=== PATIENT | male | born 1955 | race Caucasian/White ===

== ENCOUNTER 2020-12-28 10:57 | Emergency (ER) | payer MEDICARE, SELFPAY ==
[2020-12-28 11:49] VITALS: BP 152/82; PULSE 84; RESP 18; TEMP 36.4; O2SAT 97; BMI 28.7
[2020-12-28 12:38] LABS: Glucose Urine UA NEG (NEG); Leukocyte Esterase Urine NEG (NEG); Nitrite Urine NEG (NEG); Urine Blood NEG (NEG); Urine Ketones NEG (NEG); Urine Protein NEG (NEG-TRACE)
[2020-12-28 12:41] LABS: Appearance Urine CLEAR; Color Urine YELLOW
--- NOTE | 2020-12-28 14:30 | ED_ITS ---
HPI - Male Genitourinary General Chief complaint: Urogenital-Male Stated complaint: unable to urinate Time Seen by Provider: 12/28/20 14:24 Source: patient Mode of arrival: ambulatory Limitations: no limitations History of Present Illness HPI Narrative: 65 yo male with past medical history of BPH here with urinary r etention since 2am. No fevers, chills, vomiting, diarrhea, abdominal pain. Takes flomax daily. Related Data Previous Rx's Medication Instructions Recorded tamsulosin 0.4 mg capsule 0.4 mg PO DAILY 90 Days #90 cap 10/03/20 Allergies Allergy/AdvReac Type Severity Reaction Status Date / Time No Known Allergies Allergy Verified 10/02/20 09:33 [No Known Allergies*] Review of Systems Review of Systems: Yes all other systems are reviewed and are negative Constitutional: Constitutional: Reports no additional constitutional complaints, Denies body ache(s), Denies chills, Denies fever(s), Denies headache(s) and Denies weakness Eyes: Eyes: Reports no additional eye complaints and Denies change in vision ENT: Reports system reviewed and no additional complaints, except as documented, Denies dizziness, Denies headache(s), Denies nasal congestion, Denies nasal discharge and Denies neck pain Cardiovascular: Cardiovascular: Reports no additional cardiovascular complaints, Denies chest pain, Denies leg edema and Denies dyspnea Respiratory: Respiratory: Reports no additional respiratory complaints, Denies cough and Denies dyspnea Gastrointestinal: Gastrointestinal: Reports no additional gastrointestinal complaints, Denies abdominal pain, Denies diarrhea, Denies nausea and Denies vomiting Genitourinary: Genitourinary: Reports difficulty urinating, Denies dysuria, Denies flank pain, Denies penile discharge, Denies testicular pain, Denies urinary frequency, Denies urinary hesitancy, Denies urinary incontinence and Denies urinary urgency Musculoskeletal: Musculoskeletal: Reports no additional musculoskeletal compl aints, Denies back pain, Denies arthralgias, Denies joint swelling, Denies neck pain, Denies numbness and Denies tingling Integumentary/Breasts: Skin/Breast: Reports system reviewed and no additional complaints, except as docu and Denies rash Neurologic: Reports system reviewed and no additional complaints, except as documented, Denies Abnormal speech present, Denies dizziness, Denies headache(s), Denies numbness, Denies tingling and Denies weakness PMF Past Medical History Attestation statement: The following information was validated with the patient. Source: old records reviewed and nursing notes reviewed Medical History No known health problems Surgical History History of appendectomy History of prostate biopsy Family History Family History Father Cancer of prostate Mother No problems noted. Son No problems noted. Brother No problems noted. Brother No problems noted. Brother No problems noted. Brother No problems noted. Sister No problems noted. Sister No problems noted. Sister No problems noted. Social History Social History Advance Directives: Yes Advance Directives Information Provided: No Advance Directives on File: No Physical Exam Vital Signs: Vital Signs: Last Vital Signs Temp 98.7 F 12/28/20 16:17 Pulse 89 12/28/20 16:17 Resp 18 12/28/20 16:17 BP 127/76 12/28/20 16:17 Pulse Ox 94 12/28/20 16:17 Body Mass Index 28.7 Const: General: cooperative, healthy appearing, comfortable and no acute distress Orientation/consciousness: patient oriented x3 Limitations: no limitations HENMT: Head: Yes normal to inspection Ears: hearing grossly normal bila terally General nose exam: Normal external nose present Face and sinus: Yes normal facial exam Mouth: Normal oral and palatal mucosa present Throat: Yes posterior oropharynx normal Eyes: General: appearance normal, both eyes and all related structures Pupils: Equal, round and reactive pupils present Neck: Neck: Yes normal visual inspection Chest: Chest palpation & inspection: normal inspection of the chest Resp: Effort & Inspection: normal respiratory effort Auscultation: clear to auscultation bilaterally Cardio: Rate: regular rate Rhythm: regular rhythm Peripheral pulses: Peripheral pulses 2+ throughout GI: Inspection: Yes normal to inspection Palpation (GI): Soft to palpation and Tenderness to palpation present (GI) (mild suprapubic) Auscultation: normal bowel sounds Back/Spine/Pelvis: Thoracic/Lumbar Spine: thoracic and lumbar spine normal to inspection Skin: General skin exam: no rashes or lesions noted Neuro: General: patient oriented x3, no focal motor deficits and normal sensation to monofilament Cranial nerves: Yes Equal, round and reactive pupils present Cognition (Neuro): normal cognition Speech: No Abnormal speech present Gait exam (Neuro): Normal gait present Motor exam (neuro): 5/5 motor strength present throughout Extrem: General: Yes normal to inspection Course Course Course Narrative: 1430-This is rapid medical exam. 65 yo male with BPH here with urinary retention since 2am. Dribbling small amounts. Unable to completely empty with pain. Will need UA, bladder scan. Bladder scan shows >650. Will need pichardo catheter and labs. Charge nurse aware. 1730-Labs unremarkable. UA negative for infection. Pichardo catheter in place with no issues. Given instruction for home by nursing. Will refer to urology for followup. Has flomax at home. Reviewed worrisome signs/sympoms with patient and when to return to ED. Comfortable with discharge home. MDM - Male Genitourinary Medical Records Attestation: I reviewed the patient's medical records. Lab Data Attestation: I reviewed the patient's lab results. Result diagrams: 12/28/20 16:03 12/28/20 16:03 Labs: Lab Results 12/28/20 12/28/20 12/28/20 Range/Units 11:56 16:03 16:03 WBC 9.6 (4.8-10.8) X10*3/uL RBC 5.29 (4.60-5.80) X10*6/uL Hgb 15.4 (14.0-18.0) g/dl Hct 46.3 (42-52) % MCV 87.5 (80-98) fL MCH 29.1 (27.0-33.0) pg MCHC 33.3 (31.0-36.0) g/dl RDW 13.3 (11.0-16.0) % Plt Count 254 (160-400) X10*3/uL MPV 9.7 (9.4-12.4) fL Immature Gran % (Auto) 0.3 (0.0-0.4) % Neut % (Auto) 79.0 H (45-73) % Lymph % (Auto) 13.4 L (20-40) % [place] % (Auto) 6.7 (2-11) % Eos % (Auto) 0.3 (0-4) % Baso % (Auto) 0.3 (0-2) % Lymph # (Auto) 1.3 (1.2-4.9) X10*3/uL [place] # (Auto) 0.6 (0.1-1.2) X10*3/uL Eos # (Auto) 0.0 (0.0-0.4) X10*3/uL Baso # (Auto) 0.0 (0.0-0.2) X10*3/uL Abs Immat Gran (auto) 0.03 (0.00-0.03) X10*3/uL Absolute Neuts (auto) 7.6 (2.0-8.3) X10*3/uL Absolute Nucleated RBC 0.000 (0.0-0.012) X10*3/uL Nucleated RBC % (auto) 0.0 (0.0-0.2) /100WBC Sodium 142 (135-145) mmol/L Potassium 4.4 (3.3-5.1) mmol/L Chloride 106 (96-108) mmol/L Carbon Dioxide 26 (22-29) mmol/L Anion Gap 14 (12-20) BUN 13 (9-16) mg/dL Creatinine 0.79 (0.5-1.4) mg/dL Estim Creat Clear Calc 90.5 Estimated GFR > 60 Random Glucose 108 (60-115) mg/dL Calcium 9.8 (8.4-10.2) mg/dL Urine Color YELLOW Urine Appearance CLEAR Urine pH 6.0 (5.0-8.0) Ur Specific Sanders 1.020 (1.005-1.025) Urine Protein NEG (NEG-TRACE) MG/DL Urine Glucose (UA) NEG (NEG) MG/DL Urine Ketones NEG (NEG) MG/DL Urine Blood NEG (NEG) Urine Nitrite NEG (NEG) Ur Leukocyte Esterase NEG (NEG) Discharge Plan Discharge Clinical Impression: Acute retention of urine Patient Disposition: Home, Self-Care Instructions: Urinary Retention in Men (ED), Enlarged Prostate (BPH) (ED) Prescriptions: No Action tamsulosin 0.4 mg capsule 0.4 mg PO DAILY 90 Days Qty: 90 RF: 1 Referrals: Janak Perez MD [Physician] - 2 days Sahil Toledo FNP-MARTINEZ [Primary Care Provider] - 2 days
[2020-12-28 16:12] LABS: MANUAL DIFF FLAG NO
[2020-12-28 16:17] VITALS: BP 127/76; PULSE 89; RESP 18; TEMP 37.1; O2SAT 94
[2020-12-28 16:19] LABS: Basophils Percent Auto 0.3 % (0-2); Eosinophils Percent Auto 0.3 % (0-4); Hematocrit 46.3 % (42-52); Hemoglobin 15.4 g/dl (14.0-18.0); Imm Gran Abs Auto 0.03 X10*3/uL (0.00-0.03); Imm Gran Pct Auto 0.3 % (0.0-0.4); Lymphocytes Absolute Auto 1.3 X10*3/uL (1.2-4.9); Lymphocytes Percent Auto 13.4 % (20-40); Mean Corpuscular HGB Conc 33.3 g/dl (31.0-36.0); Mean Corpuscular Hemoglobin 29.1 pg (27.0-33.0); Mean Corpuscular Volume 87.5 fL (80-98); Mean Platelet Volume 9.7 fL (9.4-12.4); Monocytes Absolute Auto 0.6 X10*3/uL (0.1-1.2); Monocytes Percent Auto 6.7 % (2-11); Neutrophils Absolute Auto 7.6 X10*3/uL (2.0-8.3); Platelet Count 254 X10*3/uL (160-400); Red Blood Count 5.29 X10*6/uL (4.60-5.80); Red Cell Distribution Width 13.3 % (11.0-16.0); White Blood Count 9.6 X10*3/uL (4.8-10.8)
[2020-12-28 17:24] LABS: Anion Gap 14 (12-20); Blood Urea Nitrogen 13 mg/dL (9-16); Calcium 9.8 mg/dL (8.4-10.2); Carbon Dioxide 26 mmol/L (22-29); Chloride 106 mmol/L (96-108); Creatinine Clr Calc Pharmacy 90.5; Estimated Glomerular Filt Rate > 60; Glucose Random 108 mg/dL (60-115); Potassium 4.4 mmol/L (3.3-5.1); Sodium 142 mmol/L (135-145)
--- NOTE | 2020-12-28 17:48 | PC.NURSE ---
PT WAS REEVALED BY MATTI ALTAMIRANO. PT GIVEN LEG BAG AND TEACHING HOW TO EXCHANGE FROM NIGHT BAG TO LEG BAG DONE.
== END 2020-12-28 17:54 | disposition home or self-care (01) ==
PROVIDERS: Nurse Practitioner Family; Emergency Provider Emergency Medicine; PCP Nurse Practitioner Family
DX: R33.9 Retention of urine, unspecified (principal); Z79.899 Other long term (current) drug therapy
CPT/HCPCS: 36415; 51798; 80048; 81003; 85025; 99284

== ENCOUNTER → 2021-01-02 09:15 | Outpatient (BNVA) | payer MEDICARE, SELFPAY | PROVIDERS: PCP Nurse Practitioner Family; Visit Provider Urology | DX: N40.1 Benign prostatic hyperplasia with lower urinary tract symptoms (principal); R39.12 Poor urinary stream; R33.9 Retention of urine, unspecified | CPT/HCPCS: 51700; 51798; 99212 ==

== ENCOUNTER → 2021-02-13 09:52 | Outpatient (BNVA) | payer MEDICARE, SELFPAY | PROVIDERS: PCP Nurse Practitioner Family; Visit Provider Urology | DX: N40.1 Benign prostatic hyperplasia with lower urinary tract symptoms (principal); R39.12 Poor urinary stream | CPT/HCPCS: 99212 ==

== ENCOUNTER 2021-05-24 08:49 | Outpatient (REF) | payer MEDICARE, SELFPAY ==
[2021-05-24 11:46] LABS: Appearance Urine CLEAR; Color Urine STRAW; Glucose Urine UA NEG (NEG); Leukocyte Esterase Urine NEG (NEG); Nitrite Urine NEG (NEG); Specific Gravity - Urine <= 1.005 (1.005-1.025); Urine Blood NEG (NEG); Urine Ketones NEG (NEG); Urine Protein NEG (NEG-TRACE)
[2021-05-24 12:09] LABS: TSH reflex Free T4 0.74 uIU/mL (0.32-4.0)
[2021-05-24 12:19] LABS: Alanine Aminotransferase 33 U/L (0-40); Albumin Level 4.6 g/dL (3.5-5.0); Alkaline Phosphatase 64 U/L (39-117); Anion Gap 10 (12-20); Aspartate Amino Transferase 22 U/L (5-37); Bilirubin Total 1.1 mg/dL (0.0-1.0); Blood Urea Nitrogen 23 mg/dL (9-16); Calcium 9.2 mg/dL (8.4-10.2); Carbon Dioxide 25 mmol/L (22-29); Chloride 105 mmol/L (96-108); Cholesterol 189 mg/dL; Estimated Glomerular Filt Rate > 60; Glucose Fasting 101 mg/dL (60-99); HDL Cholesterol 54 mg/dL; LDL Cholesterol Calculated 118 mg/dl; Potassium 4.4 mmol/L (3.3-5.1); Sodium 136 mmol/L (135-145); Total Protein 7.2 g/dL (6.5-8.0); Triglycerides 89 mg/dL
== END 2021-05-24 08:50 | disposition home or self-care (01) ==
LOC: HO.HMGCLDS 08:49
PROVIDERS: PCP Nurse Practitioner Family; Visit Provider Nurse Practitioner Family
DX: Z00.00 Encounter for general adult medical examination without abnormal findings (principal)
CPT/HCPCS: 36415; 80053; 80061; 81003; 84443

== ENCOUNTER → 2021-11-08 10:08 | Outpatient (BNVA) | payer MEDICARE, SELFPAY | PROVIDERS: PCP Nurse Practitioner Family; Visit Provider Urology | DX: Z13.89 Encounter for screening for other disorder (principal) | CPT/HCPCS: Q3014 ==

== ENCOUNTER 2021-11-13 09:33 | Outpatient (REF) | payer MEDICARE, SELFPAY ==
[2021-11-13 12:25] LABS: PSA,Total (Free>4and<10) 5.25 ng/mL (0.00-4.00)
[2021-11-14 14:42] LABS: Free Prostate Spec Ag 1.2 ng/mL; Percent Free Prostate Spec Ag 27 % (calc) (>25); Prostate Specific Ag Total 4.5 ng/mL (< OR = 4.0)
== END 2021-11-13 09:34 | disposition home or self-care (01) ==
LOC: HO.HMGCLDS 09:33
PROVIDERS: PCP Nurse Practitioner Family; Visit Provider Urology
DX: Z12.5 Encounter for screening for malignant neoplasm of prostate (principal); N40.1 Benign prostatic hyperplasia with lower urinary tract symptoms; N13.8 Other obstructive and reflux uropathy
CPT/HCPCS: 36415; 84153; 84154

== ENCOUNTER 2021-11-20 09:02 | Outpatient (REF) | payer MEDICARE, SELFPAY ==
[2021-11-20 11:45] LABS: Appearance Urine CLEAR; Color Urine STRAW; Glucose Urine UA NEG (NEG); Leukocyte Esterase Urine NEG (NEG); Nitrite Urine NEG (NEG); Urine Blood NEG (NEG); Urine Ketones NEG (NEG); Urine Protein NEG (NEG-TRACE)
[2021-11-20 12:19] LABS: Alanine Aminotransferase 35 U/L (0-40); Albumin Level 4.6 g/dL (3.5-5.0); Alkaline Phosphatase 58 U/L (39-117); Anion Gap 12 (12-20); Aspartate Amino Transferase 21 U/L (5-37); Bilirubin Total 0.4 mg/dL (0.0-1.0); Blood Urea Nitrogen 17 mg/dL (9-16); Calcium 9.5 mg/dL (8.4-10.2); Carbon Dioxide 25 mmol/L (22-29); Chloride 105 mmol/L (96-108); Cholesterol 198 mg/dL; Estimated Glomerular Filt Rate > 60; Glucose Fasting 140 mg/dL (60-99); HDL Cholesterol 48 mg/dL; LDL Cholesterol Calculated 128 mg/dl; Potassium 4.3 mmol/L (3.3-5.1); Sodium 138 mmol/L (135-145); Total Protein 7.2 g/dL (6.5-8.0); Triglycerides 114 mg/dL
[2021-11-20 12:24] LABS: TSH reflex Free T4 0.93 uIU/mL (0.32-4.0)
== END 2021-11-20 09:03 | disposition home or self-care (01) ==
LOC: HO.HMGCLDS 09:02
PROVIDERS: PCP Nurse Practitioner Family; Visit Provider Nurse Practitioner Family
DX: R73.01 Impaired fasting glucose (principal)
CPT/HCPCS: 36415; 80053; 80061; 81003; 84443

== ENCOUNTER 2021-12-03 15:03 | Outpatient (REF) | payer MEDICARE, SELFPAY ==
[2021-12-03 16:35] LABS: Estimated Average Glucose 120 mg/dL; Hemoglobin A1c % 5.8 %
== END 2021-12-03 15:04 | disposition home or self-care (01) ==
LOC: HO.HMGCLDS 15:03
PROVIDERS: PCP Nurse Practitioner Family; Visit Provider Nurse Practitioner Family
DX: R73.01 Impaired fasting glucose (principal)
CPT/HCPCS: 36415; 83036

== ENCOUNTER 2022-05-06 10:19 | Outpatient (REF) | payer MEDICARE, SELFPAY ==
[2022-05-06 12:39] LABS: PSA,Total (Free>4and<10) 7.84 ng/mL (0.00-4.00)
[2022-05-08 08:41] LABS: Free Prostate Spec Ag 2.3 ng/mL; Percent Free Prostate Spec Ag 26 % (calc) (>25); Prostate Specific Ag Total 8.9 ng/mL (< OR = 4.0)
== END 2022-05-06 10:20 | disposition home or self-care (01) ==
LOC: HO.HMGCLDS 10:19
PROVIDERS: PCP Nurse Practitioner Family; Visit Provider Urology
DX: Z12.5 Encounter for screening for malignant neoplasm of prostate (principal); N40.1 Benign prostatic hyperplasia with lower urinary tract symptoms; N13.8 Other obstructive and reflux uropathy
CPT/HCPCS: 36415; 84153; 84154

== ENCOUNTER → 2022-05-14 08:32 | Outpatient (BNVA) | payer MEDICARE, SELFPAY | PROVIDERS: PCP Nurse Practitioner Family; Visit Provider Urology | DX: N52.9 Male erectile dysfunction, unspecified (principal); N40.1 Benign prostatic hyperplasia with lower urinary tract symptoms; N13.8 Other obstructive and reflux uropathy | CPT/HCPCS: Q3014 ==

== ENCOUNTER 2022-07-11 09:09 | Outpatient (REF) | payer MEDICARE, SELFPAY ==
--- NOTE | ~2022-07-11 | XR_ITS ---
EXAMINATION: XR SHOULDER, LEFT CLINICAL INFORMATION: Pain COMPARISON: None TECHNIQUE: Four views of the left shoulder. FINDINGS: No acute visible fracture or dislocation. Mild arthritic changes of the glenohumeral and acromioclavicular joint with subchondral cystic changes, joint space narrowing and periarticular osteophyte formation. Joint spaces and alignment are otherwise maintained. Soft tissues are unremarkable. Visualized portions of the left chest are unremarkable. XR/XR shoulder LT min 2V IMPRESSION: 1. No acute visible fracture or dislocation. 2. Mild arthritic changes of the glenohumeral and acromioclavicular joint.
== END 2022-07-11 09:10 | disposition home or self-care (01) ==
LOC: HO.XRAY 09:09
PROVIDERS: PCP Nurse Practitioner Family; Visit Provider Physician Assistant
DX: Z01.818 Encounter for other preprocedural examination (principal); M25.512 Pain in left shoulder
CPT/HCPCS: 73030; 99202

== ENCOUNTER 2022-11-06 12:27 | Outpatient (REF) | payer MEDICARE, SELFPAY ==
[2022-11-06 13:59] LABS: MANUAL DIFF FLAG NO
[2022-11-06 14:15] LABS: Appearance Urine Clear; Color Urine Yellow; Glucose Urine UA Negative (Negative); Leukocyte Esterase Urine Negative (Negative); Nitrite Urine Negative (Negative); Specific Gravity - Urine >= 1.030 (1.005-1.025); Urine Blood Negative (Negative); Urine Ketones Negative (Negative); Urine Protein Negative (Neg-Trace)
[2022-11-06 14:17] LABS: Basophils Absolute Auto 0.1 X10*3/uL (0.0-0.2); Basophils Percent Auto 0.7 % (0-2); Eosinophils Absolute Auto 0.2 X10*3/uL (0.0-0.4); Eosinophils Percent Auto 3.4 % (0-4); Hematocrit 43.2 % (42.0-52.0); Hemoglobin 14.8 g/dl (14.0-18.0); Imm Gran Abs Auto 0.02 X10*3/uL (0.00-0.03); Imm Gran Pct Auto 0.3 % (0.0-0.4); Lymphocytes Absolute Auto 2.2 X10*3/uL (1.2-4.9); Lymphocytes Percent Auto 31.5 % (20-40); Mean Corpuscular HGB Conc 34.3 g/dl (31.0-36.0); Mean Corpuscular Hemoglobin 30.2 pg (27.0-33.0); Mean Corpuscular Volume 88.2 fL (80.0-98.0); Mean Platelet Volume 10.3 fL (9.4-12.4); Monocytes Absolute Auto 0.7 X10*3/uL (0.1-1.2); Neutrophils Absolute Auto 3.9 x10*3/uL (2.0-8.3); Neutrophils Percent Auto 54.1 % (45-73); Platelet Count 221 X10*3/uL (160-400); Red Cell Distribution Width 13.5 % (11.0-16.0); White Blood Count 7.1 X10*3/uL (4.8-10.8)
[2022-11-06 14:32] LABS: Estimated Average Glucose 128 mg/dL; Hemoglobin A1c % 6.1 %
[2022-11-06 15:06] LABS: PSA,Total (Free>4and<10) 5.57 ng/mL (0.00-4.00)
[2022-11-07 09:29] LABS: Free Prostate Spec Ag 1.5 ng/mL; Percent Free Prostate Spec Ag 27 % (calc) (>25); Prostate Specific Ag Total 5.6 ng/mL (< OR = 4.0)
== END 2022-11-06 12:28 | disposition home or self-care (01) ==
LOC: HO.HMGCLDS 12:27
PROVIDERS: PCP Nurse Practitioner Family; Visit Provider Urology
DX: Z12.5 Encounter for screening for malignant neoplasm of prostate (principal); R73.01 Impaired fasting glucose
CPT/HCPCS: 36415; 81003; 83036; 84153; 84154; 84443; 85025

== ENCOUNTER 2022-11-08 11:16 | Outpatient (REF) | payer MEDICARE, SELFPAY ==
[2022-11-08 15:14] LABS: Alanine Aminotransferase 35 U/L (0-40); Albumin Level 4.4 g/dL (3.5-5.0); Alkaline Phosphatase 59 U/L (39-117); Anion Gap 11 (12-20); Aspartate Amino Transferase 19 U/L (5-37); Blood Urea Nitrogen 19 mg/dL (9-16); Calcium 9.4 mg/dL (8.4-10.2); Carbon Dioxide 29 mmol/L (22-29); Chloride 104 mmol/L (96-108); Cholesterol 223 mg/dL; Estimated Glomerular Filt Rate > 60; Glucose Fasting 110 mg/dL (60-99); HDL Cholesterol 47 mg/dL; LDL Cholesterol Calculated 154 mg/dl; Potassium 4.3 mmol/L (3.3-5.1); Sodium 140 mmol/L (135-145); Total Protein 7.2 g/dL (6.5-8.0); Triglycerides 113 mg/dL
== END 2022-11-08 11:17 | disposition home or self-care (01) ==
LOC: HO.HMGCLDS 11:16
PROVIDERS: PCP Nurse Practitioner Family; Visit Provider Nurse Practitioner Family
DX: R73.01 Impaired fasting glucose (principal); E78.5 Hyperlipidemia, unspecified
CPT/HCPCS: 36415; 80053; 80061

== ENCOUNTER → 2022-11-13 09:22 | Outpatient (BNVA) | payer MEDICARE, SELFPAY | PROVIDERS: PCP Nurse Practitioner Family; Visit Provider Urology | DX: N40.1 Benign prostatic hyperplasia with lower urinary tract symptoms (principal); R39.198 Other difficulties with micturition; N52.9 Male erectile dysfunction, unspecified; R97.20 Elevated prostate specific antigen [PSA] | CPT/HCPCS: Q3014 ==

== ENCOUNTER 2023-01-23 12:25 | Outpatient (REF) | payer MEDICARE, SELFPAY ==
[2023-01-23 13:57] LABS: Alanine Aminotransferase 34 U/L (0-40); Albumin Level 4.6 g/dL (3.5-5.0); Alkaline Phosphatase 59 U/L (39-117); Anion Gap 14 (12-20); Aspartate Amino Transferase 22 U/L (5-37); Bilirubin Total 1.4 mg/dL (0.0-1.0); Blood Urea Nitrogen 18 mg/dL (9-16); Calcium 9.5 mg/dL (8.4-10.2); Carbon Dioxide 26 mmol/L (22-29); Chloride 103 mmol/L (96-108); Cholesterol 139 mg/dL; Estimated Glomerular Filt Rate > 60; Glucose Fasting 102 mg/dL (60-99); HDL Cholesterol 57 mg/dL; LDL Cholesterol Calculated 70 mg/dl; Potassium 4.1 mmol/L (3.3-5.1); Sodium 139 mmol/L (135-145); Total Protein 7.1 g/dL (6.5-8.0); Triglycerides 62 mg/dL
== END 2023-01-23 12:26 | disposition home or self-care (01) ==
LOC: HO.HMGCLDS 12:25
PROVIDERS: PCP Nurse Practitioner Family; Visit Provider Nurse Practitioner Family
DX: E78.5 Hyperlipidemia, unspecified (principal)
CPT/HCPCS: 36415; 80053; 80061

== ENCOUNTER 2023-04-22 14:44 | Outpatient (REF) | payer MEDICARE, SELFPAY ==
[2023-04-22 16:46] LABS: PSA,Total (Free>4and<10) 3.86 ng/mL (0.00-4.00)
== END 2023-04-22 14:45 | disposition home or self-care (01) ==
LOC: HO.HMGCLDS 14:44
PROVIDERS: Visit Provider Urology
DX: Z12.5 Encounter for screening for malignant neoplasm of prostate (principal); R97.20 Elevated prostate specific antigen [PSA]
CPT/HCPCS: 36415; 84153

== ENCOUNTER 2023-05-21 08:41 | Outpatient (AMB) | payer MEDICARE, SELFPAY ==
--- NOTE | 2023-05-21 08:43 | MHC.OFFVIS ---
Intake Intake Visit Reasons: 6m/PSA(SET) Intake Note: Patient is present for PVR/PSA Urology Med: Tamsulosin, Sildenafil, Finasteride Antibiotic Allergy: None Blood Thinner: None Pharmacy: [facility] PVR:0 Allergies No Known Allergies [No Known Allergies*] Allergy (Verified 05/21/23 08:45) HPI HPI Comments History of Present Illness Details Martin NO is a very pleasant male. They are a patient of Dr Wilson. They are seen in the office today for the following urologic conditions. - BPH with difficulty voiding - erectile dysfunction PSA continues to fall on finasteride Happy with voiding Does wake twice at night when drinks PVR Switch to daily tadalafil for erections Finasteride 3 times a week - PSA has slowly decline PSA 11/27 5.3, 04/29 7.8 (not on finasteride), 11/28 5.6 F27%, 04/30 3.9 Erectile dysfunction Progressive Unable to maintain full erection No history of diabetes, or blood pressure medications Current medications sildenafil 100 mg Lower Urinary Tract Symptoms: Current visit is for further evaluation of, lower urinary tract symptoms, predominate obstructive symptoms. Current treatment includes medication, alpha max Prostate Symptom Score 02/24 , Moderate (9-19), Bother 4 Symptoms include 02/24 , incomplete emptying, frequency, weak stream, urgency, straining, nocturia (>2), and are progressing 03/26 , and are improving - episode of retention 2018 Results from testing include renal/bladder us Yes date 01/19/2019 PVR 150 prostate size 150 Prior Prostate Score moderate. PSA 01/24 7.7, 07/27 5.5, Prostate volume 50+gm. Six month follow-up PSA now and 6 months [facility] Medical History Incomplete emptying of bladder Nocturia Benign prostatic hyperplasia with lower urinary tract symptoms Poor urinary stream Rotator cuff disorder Enthesopathy of knee, unspecified No known health problems Surgical History History of esophagogastroduodenoscopy (EGD) Hx of colonoscopy History of prostate biopsy History of appendectomy Family History Father Cancer of prostate Mother No problems noted. Son No problems noted. Brother No problems noted. Brother No problems noted. Brother No problems noted. Brother No problems noted. Sister No problems noted. Sister No problems noted. Sister No problems noted. Social History Housing: House Patient Tobacco Use Status: Former Tobacco user Years Smoked: 5 years ago e-Cigarette/Vaping Use: Never Used Second Hand Smoke Exposure: No service: No Current occupational status: retired Current occupational exposures/hazards: No Cognitive needs: No Hearing needs: No Vision needs: No Review of Systems Const Denies chills and Denies fever(s) Card Reports no additional complaints and Denies syncope Resp Denies cough GI Denies abdominal pain and Denies heartburn Reports as per HPI and Denies change in libido Neuro Denies syncope Psych Denies change in libido Endo Denies change in libido Physical Exam Const General: cooperative, healthy appearing, comfortable and no acute distress Orientation/consciousness: patient oriented x3 HEENT Face and sinus: Yes normal facial exam Mouth: moist mucous membranes Neck Neck: Yes normal visual inspection, Yes full ROM and Yes trachea midline Chest Chest palpation & inspection: normal inspection of the chest Resp Effort & Inspection: normal respiratory effort, able to speak in complete sentences and no respiratory distress GI Inspection: Yes normal to inspection Back/Spine/Pelvis Cervical Spine: normal cervical lordosis Thoracic/Lumbar Spine: thoracic and lumbar spine normal to inspection Skin General skin exam: no rashes or lesions noted Neuro General: patient oriented x3, gait normal, tone normal and moves all extremities Extrem General: Yes normal to inspection and Yes capillary refill normal Results AMB Urinalysis, Automated UA Leukoctes 0 Demond/uL Last Edit by ROSEMARIE Hsu on 05/21/23 08:53 UA Nitrite Negative Last Edit by ROSEMARIE Hsu on 05/21/23 08:53 UA Urobilinogen 0 mg/dL Last Edit by ROSEMARIE Hsu on 05/21/23 08:53 UA Protein 15 mg/dL Last Edit by ROSEMARIE Hsu on 05/21/23 08:53 UA pH 7.5 Last Edit by ROSEMARIE Hsu on 05/21/23 08:53 UA Blood 0 Ken/uL Last Edit by OLIVIA HsuA on 05/21/23 08:53 UA Specific [place] 1.015 Last Edit by Ladi Gordon RMA on 05/21/23 08:53 UA Ketone Negative Last Edit by Ladijoon Gordon, RMA on 05/21/23 08:53 UA Bilirubin 0 mg/dL Last Edit by Ladi Gordon, RMA on 05/21/23 08:53 UA Glucose 0 mg/dL Last Edit by Ladi Gordon A on 05/21/23 08:53 Results Reviewed Results Reviewed: Laboratory Last Values Urine pH (Auto) 7.5 05/21/23 08:45 Specific [place] (Auto) 1.015 05/21/23 08:45 Urine Protein (Auto) 15 mg/dL 05/21/23 08:45 Glucose (UA)(Auto) 0 mg/dL 05/21/23 08:45 Urine Ketones (Auto) Negative 05/21/23 08:45 Urine Blood (Auto) 0 Ken/uL 05/21/23 08:45 Urine Nitrite (Auto) Negative 05/21/23 08:45 Urine Bilirubin (Auto) 0 mg/dL 05/21/23 08:45 Urine Urobilinogen (Auto) 0 mg/dL 05/21/23 08:45 Leukocyte Esterase (Auto) 0 Demond/uL 05/21/23 08:45 Assessment & Plan Assessment & Plan (1) Elevated PSA: Code(s): R97.20 - Elevated prostate specific antigen [PSA] (2) Benign prostatic hyperplasia with lower urinary tract symptoms: Code(s): N40.1 - Benign prostatic hyperplasia with lower urinary tract symptoms (3) Erectile dysfunction: Code(s): N52.9 - Male erectile dysfunction, unspecified Plan Six month follow-up Orders: Orders AMB Urinalysis Automated Today Z13.9 - Encounter for screening, unspecified AMB Post Void Residual by ultrasound Today N40.1 - Benign prostatic hyperplasia with lower urinary tract symptoms Medications: New tadalafil 5 mg PO DAILY 90 days 90 tabs 1RF sexual activity N52.9 - Male erectile dysfunction, unspecified Patient Instructions: Imaging studies, laboratory and physical exam results were discussed and reviewed in detail. No major barriers to patient understanding were identified. An opportunity to ask questions regarding the treatment plan was provided. All questions were answered. The patient expressed understanding and agreement with the above treatment plan. The patient is aware they should contact our office by phone for worsening of their current condition or the appearance of new urologic symptoms. Compliance is encouraged with any medications and followup testing that is ordered. It is a privilege to participate in the urologic care of your patient. If you have any questions or concerns regarding treatment for the above conditions, or other urologic issues, please do not hesitate to contact me. The office telephone contact is [phone]. This note is constructed using voice recognition software. While every effort has been made to ensure accuracy tube cutter errors may have been included. Yours sincerely, Dr Janak Perez MD, [facility] - Urology Providers of Expert, Compassionate Care for the Genitourinary System Coding Level of Care Code Est Pt Level 4 (07434) Diagnoses Elevated PSA R97.20 Benign prostatic hyperplasia with lower urinary tract symptoms N40.1 Erectile dysfunction N52.9
== END 2023-05-21 09:01 | disposition home or self-care (01) ==
PROVIDERS: PCP Nurse Practitioner Family; Visit Provider Urology
DX: R97.20 Elevated prostate specific antigen [PSA] (principal); N40.1 Benign prostatic hyperplasia with lower urinary tract symptoms; N52.9 Male erectile dysfunction, unspecified; Z13.9 Encounter for screening, unspecified
CPT/HCPCS: 99214

== ENCOUNTER → 2023-05-21 08:41 | Outpatient (BNVA) | payer MEDICARE, SELFPAY | PROVIDERS: Visit Provider Urology | DX: N40.1 Benign prostatic hyperplasia with lower urinary tract symptoms (principal); N13.8 Other obstructive and reflux uropathy; N52.9 Male erectile dysfunction, unspecified; R39.12 Poor urinary stream; R97.20 Elevated prostate specific antigen [PSA] | CPT/HCPCS: 81003; 99212 ==

== ENCOUNTER 2023-11-18 08:42 | Outpatient (AMB) | payer MEDICARE, SELFPAY ==
--- NOTE | 2023-11-18 08:43 | A.OFFVIS_ITS ---
Intake Intake Visit Reasons: 6M Follow Up(BPH) Confirmed Intake Note: Patient presents today for a follow-up on BPH Meds- Finasteride, Sildenafil, Tadalafil, Tamsulosin Allergies to Antibiotic- No Known Allergies Blood Thinner- None [employer] Estimator Required: No Accompanied by: Self / Same As Patient Allergies No Known Allergies [No Known Allergies*] Allergy (Verified 11/18/23 08:45) [facility] HPI Comments History of Present Illness Details Martin NO is a very pleasant male. They are a patient of Dr Wilson. They are seen in the office today for the following urologic conditions. - BPH with difficulty voiding - erectile dysfunction Telemedicine Evaluation 15 min Consultation wireWAX [place] Video attempted Follow-up from trial tadalafil daily Has been effective PSA fell on finasteride Happy with voiding Does wake twice at night when drinks PVR Finasteride 3 times a week - PSA has slowly decline PSA 11/27 5.3, 04/29 7.8 (not on finasteride), 11/28 5.6 F27%, 04/30 3.9 Erectile dysfunction Progressive Unable to maintain full erection No history of diabetes, or blood pressure medications Prior medications sildenafil 100 mg Lower Urinary Tract Symptoms: Current visit is for further evaluation of, lower urinary tract symptoms, predominate obstructive symptoms. Current treatment includes medication, alpha max Prostate Symptom Score 02/24 , Moderate (9-19), Bother 4 Symptoms include 02/24 , incomplete emptying, frequency, weak stream, urgency, straining, nocturia (>2), and are progressing 03/26 , and are improving - episode of retention 2018 Results from testing include renal/bladder us Yes date 01/19/2019 PVR 150 prostate size 150 Prior Prostate Score moderate. PSA 01/24 7.7, 07/27 5.5, Prostate volume 50+gm. Six month follow-up PSA now and 6 months [facility] Medical History Incomplete emptying of bladder Nocturia Benign prostatic hyperplasia with lower urinary tract symptoms Poor urinary stream Rotator cuff disorder Enthesopathy of knee, unspecified No known health problems Surgical History History of esophagogastroduodenoscopy (EGD) Hx of colonoscopy History of prostate biopsy History of appendectomy Family History Father Cancer of prostate Mother No problems noted. Son No problems noted. Brother No problems noted. Brother No problems noted. Brother No problems noted. Brother No problems noted. Sister No problems noted. Sister No problems noted. Sister No problems noted. Social History Housing: House Patient Tobacco Use Status: Former Tobacco user Years Smoked: 5 years ago e-Cigarette/Vaping Use: Never Used Second Hand Smoke Exposure: No service: No Current occupational status: retired Current occupational exposures/hazards: No Cognitive needs: No Hearing needs: No Vision needs: No Review of Systems Const All systems reviewed & are unremarkable except as noted in HPI and below Reports no additional complaints Resp Reports no additional complaints GI Reports no additional complaints Reports as per HPI Musc Reports no additional complaints Physical Exam Telemedicine evaluation Appropriate responses Regular breathing rate and rhythm HEENT Head: Yes normal to inspection Ears: hearing grossly normal bilaterally Eyes General: appearance normal, both eyes and all related structures Neck Neck: Yes normal visual inspection Chest Chest palpation & inspection: normal inspection of the chest Resp Effort & Inspection: normal respiratory effort and able to speak in complete sentences Assessment & Plan Assessment & Plan (1) Erectile dysfunction: Code(s): N52.9 - Male erectile dysfunction, unspecified (2) Elevated PSA: Code(s): R97.20 - Elevated prostate specific antigen [PSA] (3) Benign prostatic hyperplasia with lower urinary tract symptoms: Code(s): N40.1 - Benign prostatic hyperplasia with lower urinary tract symptoms Plan Six-month follow-up PSA office Refill finasteride Refilled tadalafil Orders: Orders PSA,Total (Free>4and<10) 6 Months R97.20 - Elevated prostate specific antigen [PSA] Medications: Refilled finasteride 5 mg orally Friday, Friday, and Friday 90 tabs 1RF N40.1 - Benign prostatic hyperplasia with lower urinary tract symptoms, R33.9 - Retention of urine, unspecified tadalafil 5 mg PO DAILY 90 days 90 tabs 1RF sexual activity N52.9 - Male erectile dysfunction, unspecified Patient Instructions: Imaging studies, laboratory and physical exam results were discussed and reviewed in detail. No major barriers to patient understanding were identified. An opportunity to ask questions regarding the treatment plan was provided. All questions were answered. The patient expressed understanding and agreement with the above treatment plan. The patient is aware they should contact our office by phone for worsening of their current condition or the appearance of new urologic symptoms. Compliance is encouraged with any medications and followup testing that is ordered. It is a privilege to participate in the urologic care of your patient. If you have any questions or concerns regarding treatment for the above conditions, or other urologic issues, please do not hesitate to contact me. The office telephone contact is [phone]. This note is constructed using voice recognition software. While every effort has been made to ensure accuracy referral clerk errors may have been included. Yours sincerely, Dr Janak Perez MD, [facility] - Urology Providers of Expert, Compassionate Care for the Genitourinary System Telehealth Telehealth Location of provider rendering services: practice address Location of patient: address on file Patient Identification confirmed using: Name, : Yes Telehealth method: video Patient verbally consented to treatment: Yes Patient verbally consented to billing insurance company: Yes Patient informed of any privacy concerns related to visit: Yes Coding Level of Care Code Tele Est Pt Level 3 (12777) Diagnoses Erectile dysfunction N52.9 Elevated PSA R97.20 Benign prostatic hyperplasia with lower urinary tract symptoms N40.1
== END 2023-11-18 09:35 | disposition home or self-care (01) ==
LOC: HO.HUSH 08:43
PROVIDERS: PCP Nurse Practitioner Family; Visit Provider Urology
DX: N52.9 Male erectile dysfunction, unspecified (principal); R97.20 Elevated prostate specific antigen [PSA]; N40.1 Benign prostatic hyperplasia with lower urinary tract symptoms
CPT/HCPCS: 99213

== ENCOUNTER → 2023-11-18 08:42 | Outpatient (BNVA) | payer MEDICARE, SELFPAY | PROVIDERS: PCP Nurse Practitioner Family; Visit Provider Urology ==

== ENCOUNTER 2023-12-02 13:17 | Outpatient (AMB) | payer MEDICARE, SELFPAY ==
--- NOTE | 2023-12-02 13:21 | MHC.PC.OV ---
Vital Signs 12/02/23 13:27 Height 5 ft 6 in Weight 192 lb BMI 31.0 BP 118/74 Blood Pressure Location Rt brachial Position Sitting Pulse 80 Pulse Source Pulse Oximeter Pulse Oximetry (%) 95 Oxygen Delivery Method Room Air Intake Visit Reasons: Annual Physical Director Instructional Material Required: No Accompanied by: Self / Same As Patient Allergies No Known Allergies [No Known Allergies*] Allergy (Verified 12/02/23 13:56) Medication List - Last Reconciled 12/02/23 by LEXIS Melendez finasteride 5 mg orally Friday, Friday, and Friday sildenafil 100 mg PO ONCE PRN 30 days tadalafil 5 mg PO DAILY 90 days tamsulosin 0.8 mg (2 x 0.4 mg) PO DAILY 90 days Tobacco use date assessed: 11/04/22 HPI Annual Physical HPI Details Pt is here for a PE. Will order labs. Pt saw GI for his colon screen but has not heard back about an appointment, will check on this. PSA is up to date, pt sees urology. Denies dribbling with urination, weak stream, and frequent nocturia. Pt c/o left hip pain. He reports sharp pain with standing for long periods. He denies popping and clicking. Will order XR. Pt has a significant hx of carpal tunnel. It was recommended that he have surgery but pt did not want this. Recommended wrist braces at night. Pt has multiple skin lesions to his face and upper torso. Will refer to derm. New RBBB noted on EKG, will order echo. denies any CP, SOB, blurred vision, [place] Medical History Incomplete emptying of bladder Nocturia Benign prostatic hyperplasia with lower urinary tract symptoms Poor urinary stream Rotator cuff disorder Enthesopathy of knee, unspecified No known health problems Surgical History History of esophagogastroduodenoscopy (EGD) Hx of colonoscopy History of prostate biopsy History of appendectomy Family History Father Cancer of prostate Mother No problems noted. Son No problems noted. Brother No problems noted. Brother No problems noted. Brother No problems noted. Brother No problems noted. Sister No problems noted. Sister No problems noted. Sister No problems noted. Social History Housing: House Patient Tobacco Use Status: Former Tobacco user Years Smoked: 5 years ago e-Cigarette/Vaping Use: Never Used Second Hand Smoke Exposure: No service: No Current occupational status: retired Current occupational exposures/hazards: No Cognitive needs: No Hearing needs: No Vision needs: No Questionnaire PHQ-9 Over the last 2 weeks, how often have you been bothered by any of the following problems? 1. Little interest or pleasure in doing things: not at all 2. Feeling down, depressed, or hopeless: not at all 3. Trouble falling or staying asleep, or sleeping too much: not at all 4. Feeling tired or having little energy: not at all 5. Poor appetite or overeating: not at all 6. Feeling bad about yourself - or that you are a failure or have let yourself or your family down: not at all 7. Trouble concentrating on things, such as reading the newspaper or watching television: not at all 8. Moving or speaking so slowly that other people could have noticed. Or the opposite - being so fidgety or restless that you have been moving around a lot more than usual: not at all 9. Thoughts that you would be better off or of hurting yourself in some way: not at all Total score: 0 Depression Screening Interpretation: Negative Depression Screening Done: Yes 37613 - PHQ-9 Billing: Yes Source: Developed by Drs. Luis Schaffer, Doreen Garcia, Mario Graham and colleagues, with an educational sabas from [employer]. Thrive Questionnaire Date Thrive assessed: 12/02/23 I am a: Patient What is your living situation today?: I have a steady place to live Within the past 12 months, did the food you bought not last and you didn't have the money to get more?: Never true Within the past 12 months, did you worry whether your food would run out before you got money to buy more?: Never true Do you have trouble paying for medicines?: No Do you have trouble getting transportation to medical appointments?: No Do you have trouble paying your heating and electricity bill?: No Do you have trouble taking care of your child, family member or friend?: No Do you have trouble with day-to-day activities such as bathing, preparing meals, shopping, managing finances, etc.?: No Are you currently unemployed and looking for a job?: No Are you interested in more education?: No Please select the resources that you would like help with: None Currently or been in a relationship where the following occur: no concerns reported THRIVE Score: 0 AUDIT C Alcohol Use Questionnaire (AUDIT-C) 1. How often do you have a drink containing alcohol?: Monthly or less 2. How many drinks containing alcohol do you have on a typical day when you are drinking?: 1 or 2 3. How often do you have six or more drinks on one occasion?: Never Total Score: 1 Score Reviewed/Action Taken: Yes RUTH-7 AMB Questionnaire RUTH-7 Date RUTH - 7 assessed: 12/02/23 Feeling nervous, anxious, or on edge: 0 = Not at all Not being able to stop or control worryin = Not at all Worrying too much about different things: 0 = Not at all Trouble relaxin = Not at all Being so restless that it is hard to sit still: 0 = Not at all Becoming easily annoyed or irritable: 0 = Not at all Feeling afraid as if something awful might happen: 0 = Not at all Total RUTH-7 score (0-4 normal; 5-9 mild; 10-14 moderate; 15-21 severe): 0 Source: Developed by Drs. Luis Schaffer, Doreen Garcia, Mario Graham and colleagues, with an educational sabas from [employer]. RUTH-7 Assessment Billing RUTH-7 Assessment Tool: RUTH-7 Assessment 12236 Review of Systems Const Denies chills and Denies fever(s) Eyes Denies blurry vision ENT Denies vertigo, Denies dizziness and Denies sore throat Card Denies chest pain at rest, Denies chest pain with activity, Denies diaphoresis, Denies dyspnea and Denies dyspnea on exertion Resp Denies cough, Denies dyspnea, Denies dyspnea on exertion and Denies wheezing GI Denies abdominal pain, Denies melena, Denies hematochezia, Denies constipation, Denies diarrhea and Denies loose stools Denies hematuria Musc Denies numbness and Denies tingling Skin/Breast Denies lesions Neuro Denies vertigo, Denies dizziness, Denies numbness and Denies tingling Psych Denies anxiety, Denies depression, Denies homicidal ideation, Denies suicidal ideation and Denies other (substance abuse) Aller/Immun Denies wheezing Physical exam (Primary Care) Vital Signs: Last Vital Signs Pulse 80 12/02/23 13:27 BP 118/74 12/02/23 13:27 Pulse Ox 95 12/02/23 13:27 Oxygen Delivery Method Room Air 12/02/23 13:27 BMI result Body Mass Index 31.0 Tobacco/Smoking Status: Tobacco use Status Tobacco use date assessed 11/04/22 12/02/23 13:22 Patient Tobacco Use Status Former Tobacco user 12/02/23 13:22 e-Cigarette/Vaping Use Never Used 12/02/23 13:22 PHQ-9: PHQ-9 Score PHQ-9: Total score 0 12/02/23 13:54 Depression Screening Interpretation: Negative Thrive Assessment: Date of Thrive Assessment Date Thrive assessed 12/02/23 12/02/23 13:43 Currently or been in a relationship where the following occur: no concerns reported Const General: cooperative Nutritional Appearance: obese Orientation/consciousness: patient oriented x3 HENMT Head: Yes normal to inspection, Yes normocephalic and Yes atraumatic Ears: TM's normal bilaterally Eyes General: appearance normal, both eyes and all related structures Alignment and Position: alignment normal and position normal Neck Neck: Yes normal visual inspection and Yes no lymphadenopathy Thyroid: Thyroid normal Resp Effort & Inspection: normal respiratory effort Auscultation: clear to auscultation bilaterally Cardio Rate: regular rate Rhythm: regular rhythm Heart sounds: S1 normal heart sound present, S2 normal heart sound present and no murmurs GI Other: small umbilical hernia Palpation (GI): Soft to palpation and nontender Auscultation: normal bowel sounds Male General Exam: Yes normal external exam Penis: normal penis Scrotum: scrotum normal, testes descended bilaterally and no inguinal hernias Testes: no testicular mass Skin Other: lower mid back with large skin lesion, several skin lesions to face and upper torso Rashes: no rashes Neuro General: patient oriented x3, moves all extremities, no focal motor deficits and deep tendon reflexes 2+ bilaterally Romberg Test: Negative Extrem Other: + tinels, left hip: no popping or clicking noted, pain noted with abduction and adduction Psych Appearance: grossly normal Mental Status: mental status grossly normal Speech and movement: Normal speech and movement present Affect: normal affect Attitude: cooperative Thought process: Normal thought process present Thought content: Normal thought content present Insight: Good insight present (Psych) Judgement: Good judgement present (Psych) Results AMB Hemoglobin A1c AMB Hemoglobin A1c 6.2 % Last Edit by Arnel Carrion CMA on 12/02/23 13:48 Results Reviewed Results Reviewed: Laboratory Last Values Hgb A1c (Clinic) 6.2 % (4.0-6.0) H 12/02/23 13:47 Assessment and Plan Assessment & Plan (1) Physical exam: Code(s): Z00.00 - Encounter for general adult medical examination without abnormal findings Plan: Labs ordered (2) Skin lesions: Code(s): L98.9 - Disorder of the skin and subcutaneous tissue, unspecified Plan: Referred to derm (3) Left hip pain: Code(s): M25.552 - Pain in left hip Plan: XR ordered (4) New onset right bundle branch block (RBBB): Code(s): I45.10 - Unspecified right bundle-branch block Plan: Echo ordered Plan The patient agreed to the use of a biomedical engineer for this encounter. Scribed for CAROL Victor- by Liliana Taylor biomedical engineer, on 12/02/2023 at 13:55 EST. Orders: Orders Complete Blood Count Auto Diff Today Z00.00 - Encounter for general adult medical examination without abnormal findings TSH reflex Free T4 Today Z00.00 - Encounter for general adult medical examination without abnormal findings Lipid Panel Today Z00.00 - Encounter for general adult medical examination without abnormal findings XR hip LT min 2V Today M25.552 - Pain in left hip CA echo transthoracic complete Today I45.10 - Unspecified right bundle-branch block AMB Hemoglobin A1c Today Z13.9 - Encounter for screening, unspecified Comprehensive Kathryn. Panel Fast Today Z00.00 - Encounter for general adult medical examination without abnormal findings UA CC w/rflx Micro + Cult Today Z00.00 - Encounter for general adult medical examination without abnormal findings Referrals Dermatology Referral L98.9 - Disorder of the skin and subcutaneous tissue, unspecified Coding Level of Care Code Est Pt Prev Care >65y(80141) Diagnoses Physical exam Z00.00 Skin lesions L98.9 Left hip pain M25.552 New onset right bundle branch block (RBBB) I45.10 Additional Codes RUTH-7 Assessment Billing - RUTH-7 Assessment Tool: RUTH-7 Assessment 67167 ([id number])
[2023-12-02 13:27] VITALS: BP 118/74; PULSE 80; O2SAT 95; BMI 31.0
== END 2023-12-02 14:31 | disposition home or self-care (01) ==
PROVIDERS: PCP Nurse Practitioner Family; Visit Provider Nurse Practitioner Family
DX: Z00.00 Encounter for general adult medical examination without abnormal findings (principal); L98.9 Disorder of the skin and subcutaneous tissue, unspecified; M25.552 Pain in left hip; I45.10 Unspecified right bundle-branch block; Z13.9 Encounter for screening, unspecified
CPT/HCPCS: 83036; 99397

== ENCOUNTER 2023-12-02 14:36 | Outpatient (REF) | payer MEDICARE, SELFPAY ==
--- NOTE | ~2023-12-02 | XR_ITS ---
EXAMINATION: XR HIP, LEFT CLINICAL INFORMATION: Pain in left hip COMPARISON: None available. TECHNIQUE: Two views of the left hip. FINDINGS: Degenerative changes in the minimally imaged lower lumbar spine. Moderate degenerative changes in the partially imaged left sacroiliac joint. Mild degenerative changes in the left hip with joint space narrowing and mild hypertrophic change. Small calcification in the soft tissues adjacent to the greater trochanter. XR/XR hip LT min 2V IMPRESSION: Mild degenerative changes in the left hip.
[2023-12-02 16:13] LABS: MANUAL DIFF FLAG NO
[2023-12-02 16:19] LABS: Basophils Percent Auto 0.4 % (0-2); Eosinophils Absolute Auto 0.3 X10*3/uL (0.0-0.4); Eosinophils Percent Auto 3.8 % (0-4); Hematocrit 43.4 % (42.0-52.0); Hemoglobin 14.7 g/dl (14.0-18.0); Imm Gran Abs Auto 0.02 X10*3/uL (0.00-0.03); Imm Gran Pct Auto 0.3 % (0.0-0.4); Lymphocytes Absolute Auto 2.6 X10*3/uL (1.2-4.9); Lymphocytes Percent Auto 34.3 % (20-40); Mean Corpuscular HGB Conc 33.9 g/dl (31.0-36.0); Mean Corpuscular Hemoglobin 29.5 pg (27.0-33.0); Mean Corpuscular Volume 87.1 fL (80.0-98.0); Mean Platelet Volume 10.2 fL (9.4-12.4); Monocytes Absolute Auto 0.7 X10*3/uL (0.1-1.2); Monocytes Percent Auto 9.7 % (2-11); Neutrophils Absolute Auto 3.9 x10*3/uL (2.0-8.3); Neutrophils Percent Auto 51.5 % (45-73); Platelet Count 218 X10*3/uL (160-400); Red Blood Count 4.98 X10*6/uL (4.60-5.80); Red Cell Distribution Width 13.6 % (11.0-16.0); White Blood Count 7.5 X10*3/uL (4.8-10.8)
[2023-12-02 16:22] LABS: Appearance Urine Clear; Color Urine Yellow; Glucose Urine UA Negative (Negative); Leukocyte Esterase Urine Negative (Negative); Nitrite Urine Negative (Negative); Urine Blood Negative (Negative); Urine Ketones Negative (Negative); Urine Protein Negative (Neg-Trace)
[2023-12-02 16:50] LABS: Alanine Aminotransferase 29 U/L (0-40); Albumin Level 4.6 g/dL (3.5-5.0); Alkaline Phosphatase 62 U/L (39-117); Anion Gap 14 (12-20); Aspartate Amino Transferase 20 U/L (5-37); Bilirubin Total 0.8 mg/dL (0.0-1.0); Blood Urea Nitrogen 14 mg/dL (9-16); Calcium 9.6 mg/dL (8.4-10.2); Carbon Dioxide 27 mmol/L (22-29); Chloride 103 mmol/L (96-108); Cholesterol 202 mg/dL (<200); Estimated Glomerular Filt Rate > 60; Glucose Fasting 90 mg/dL (60-99); HDL Cholesterol 56 mg/dL (>40); LDL Cholesterol Calculated 122 mg/dL (<100); Potassium 4.1 mmol/L (3.3-5.1); Sodium 140 mmol/L (135-145); Total Protein 7.4 g/dL (6.5-8.0); Triglycerides 123 mg/dL (<150)
[2023-12-02 16:57] LABS: TSH reflex Free T4 1.48 uIU/mL (0.32-4.0)
== END 2023-12-02 14:37 | disposition home or self-care (01) ==
LOC: HO.HMGCLDS 14:36
PROVIDERS: PCP Nurse Practitioner Family; Visit Provider Nurse Practitioner Family
DX: Z00.00 Encounter for general adult medical examination without abnormal findings (principal); Z13.6 Encounter for screening for cardiovascular disorders; M25.552 Pain in left hip
CPT/HCPCS: 36415; 73502; 80053; 80061; 81003; 84443; 85025

== ENCOUNTER → 2023-12-26 14:39 | Outpatient (REF) | payer MEDICARE, SELFPAY ==
--- NOTE | 2023-12-26 14:44 | CA_ITS ---
Transthoracic Echocardiogram Patient (Last, First, Middle): Janeen Merida E Gender: Male Date of : 1955 Age: 68 Procedure Date: 12/26/2023 Procedure Type: Transthoracic Echocardiogram Location: OP Height: 167.64 cm Weight: 87.09 kg BSA: 1.97 m2 Heart Rate: 76 bpm BP: 120 / 72 mmHg Automotive Generator Repairer: SB Referring MD: Sahil Toledo [facility] Symptoms: I45.10 - Unspecified right bundle-branch block Study Quality: Adequate ECG Rhythm: Sinus Conclusions: - The left ventricular systolic function is normal. The calculated ejection fraction is 58% by biplane method. - No obvious valvular pathology seen on this study. Findings Left Ventricle Normal left ventricular cavity size. The left ventricular systolic function is normal. The calculated ejection fraction is 58% by biplane method. There is no evidence of regional wall motion abnormalities. Diastolic function is normal for age. There is mild septal asymmetric hypertrophy. LV peak GLS 15.9% (mildly reduced, cannot exclude underestimation). Right Ventricle Normal right ventricular cavity size and systolic function. Atria Both atria are normal in size. Aortic Valve There is a normal trileaflet aortic valve. There is no aortic valve stenosis. There is trace (trivial) aortic valve regurgitation. Mitral Valve The mitral valve appears normal. There is no mitral valve regurgitation. There is no mitral valve stenosis. Pulmonic Valve The pulmonic valve is likely normal. Tricuspid Valve Normal tricuspid valve structure. There is trace tricuspid valve regurgitation. There is no evidence of pulmonary hypertension. Great Vessels The asc aorta is normal in size. Venous The inferior vena cava was not well visualized. Pericardium/Pleural There is no evidence of pericardial effusion. Prior Study Comparison No prior study available for comparison. Recommendations, Care & Conclusions No obvious valvular pathology seen on this study. Measurements 2D Linear Measurements IVSd: 1.07 0.6-0.9/0.6-1.0 cm LVIDd: 3.88 3.9-5.3/4.2-5.9 cm LVIDd Index: 1.97 2.4-3.2/2.2-3.1 cm/m2 LVIDs: 2.70 2.0-3.6 cm LVPWd: 0.57 0.7-1.1 cm LA Diam: 3.30 2.7-3.8/3.0-4.0 cm LAIDs Index: 1.68 1.5-2.3 cm/m2 LV Mass: 114.46 67-162/88-224 g LV Mass Index: 58.10 43-95/49-115 g/m2 LVOT Diam: 2.30 3.0+(-)1.3 cm 2D Systolic Function EF 4C: 53.60 >55% EF 2C: 61.90 >55% EF BiP: 57.90 >55% Mitral Valve MV Pk E: 0.73 MV PK A: 1.03 MV Decel Time: 202.00 E/A: 0.70 E'Lateral: 5.66 E'Medial: 5.33 E/E' Med: 13.70 E/E' Lat: 12.90 PHT: 59.00 MVA PHT: 3.73 Decel Hardee: 3.60 Aortic Valve AoV Pk Dino: 1.36 AoV Pk Grad: 7.00 JOSE: 3.46 AI Pk Dino: 4.23 AI Hardee: 2.25 LVOT LVOT Pk Dino: 1.12 LVOT Mn Dino: 0.75 LVOT VTI: 0.21 LVOT Pk Grad: 5.00 LVOT Mn Grad: 3.00 LVOT Diam: 2.30 LVOT Area: 4.15 Diastolic Function MV Pk E: 0.73 MV Pk A: 1.03 E/A: 0.70 E'Medial: 5.33 E/E' Med: 13.70 E' Laterial: 5.66 E/E' Lat: 12.90 Right Ventricle TAPSE (mm): 20.90 TVS' Dino: 10.60 Tricuspid Valve RA Press: 3.00 Great Vessels Aorta Sinus of Valsalva: 3.10 2.0-3.5 cm Ao Asc: 3.40 2.1-3.4 cm Pulmonary Veins Pulm Vein S/D 1.60 Pulmonary Valve PV Pk Dino: 1.07 Peak PV Grad: 5.00 Updated in Other Vendor System with Status of Final Regis Bauer MD electronically signed on 12/27/2023 1:30:34 PM with status of Final
== END ==
LOC: HO.CARD 14:39
PROVIDERS: PCP Nurse Practitioner Family; Visit Provider Nurse Practitioner Family
DX: I45.10 Unspecified right bundle-branch block (principal)
CPT/HCPCS: 93306; 93356

== ENCOUNTER → 2023-12-26 14:44 | Outpatient (BNV) | payer MEDICARE, SELFPAY | PROVIDERS: PCP Nurse Practitioner Family; Visit Provider Internal Medicine | DX: I42.2 Other hypertrophic cardiomyopathy (principal); I45.10 Unspecified right bundle-branch block; R93.1 Abnormal findings on diagnostic imaging of heart and coronary circulation | CPT/HCPCS: 93306; 93356 ==

== ENCOUNTER 2023-12-31 11:44 | Outpatient (AMB) | payer MEDICARE, SELFPAY ==
--- NOTE | 2023-12-31 11:47 | A.OFFVIS_ITS ---
Vital Signs 12/31/23 11:51 Height 5 ft 6 in Weight 182 lb BMI 29.4 BP 105/62 Blood Pressure Location Lt brachial Position Sitting Pulse 91 Intake Visit Reasons: COLONOSCOPY CONSULT Intake Note: Patient new consult for Pre 2nd pre Colonoscopy screening. Patient denes any GI issues. Hose Tubing Backer Required: No Accompanied by: Self / Same As Patient Allergies No Known Allergies [No Known Allergies*] Allergy (Verified 12/31/23 11:47) Medication List - Last Reconciled 12/31/23 by Paloma Lugo PA-C atorvastatin 10 mg PO BEDTIME finasteride 5 mg orally Friday, Friday, and Friday sildenafil 100 mg PO ONCE PRN 30 days tadalafil 5 mg PO DAILY 90 days tamsulosin 0.8 mg (2 x 0.4 mg) PO DAILY 90 days HPI Comments Details: A 68 y/o male seen 2021-referred back for screening colonoscopy He has hx ulcer- years ago-he does not recall much detail However taking buttermaker continuous churn IBU- for ortho pain- he has noted increasing acid reflux- he is not taking a ppi- Appetite is good Bowels normal He is retired -got bored- 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 Son No problems noted. Brother No problems noted. Brother No problems noted. Brother No problems noted. Brother No problems noted. Sister No problems noted. Sister No problems noted. Sister No problems noted. Social History Housing: House Patient Tobacco Use Status: Former Tobacco user Years Smoked: 5 years ago e-Cigarette/Vaping Use: Never Used Second Hand Smoke Exposure: No service: No Current occupational status: retired Current occupational exposures/hazards: No Cognitive needs: No Hearing needs: No Vision needs: No Review of Systems Const All systems reviewed & are unremarkable except as noted in HPI and below Card Denies chest pain and Denies dyspnea Resp Denies dyspnea GI Denies abdominal pain, Reports heartburn, Denies nausea and Denies vomiting Physical Exam Vital Signs: Last Vital Signs Pulse 91 12/31/23 11:51 BP 105/62 12/31/23 11:51 BMI result Body Mass Index 29.4 Very pleasant alert 68-year-old male Anicteric Cardiovascular, regular rate rhythm no murmurs no Lungs, clear to auscultation bilaterally no wheezes rales or rhonchi Abdomen, positive bowel sounds soft nontender no rebound guarding CVA tenderness Extremities, full range of motion, no edema clubbing or cyanosis Skin without rash Results Reviewed Results Reviewed: Findings Left Ventricle Normal left ventricular cavity size. The left ventricular systolic function is normal. The calculated ejection fraction is 58% by biplane method. There is no evidence of regional wall motion abnormalities. Diastolic function is normal for age. There is mild septal asymmetric hypertrophy. LV peak GLS 15.9% (mildly reduced, cannot exclude underestimation). Right Ventricle Normal right ventricular cavity size and systolic function. Atria Both atria are normal in size. Aortic Valve There is a normal trileaflet aortic valve. There is no aortic valve stenosis. There is trace (trivial) aortic valve regurgitation. Mitral Valve The mitral valve appears normal. There is no mitral valve regurgitation. There is no mitral valve stenosis. Pulmonic Valve The pulmonic valve is likely normal. Tricuspid Valve Normal tricuspid valve structure. There is trace tricuspid valve regurgitation. There is no evidence of pulmonary hypertension. Great Vessels The asc aorta is normal in size. Venous The inferior vena cava was not well visualized. Pericardium/Pleural There is no evidence of pericardial effusion. Prior Study Comparison No prior study available for comparison. Recommendations, Care & Conclusions No obvious valvular pathology seen on this study. Assessment & Plan Assessment & Plan (1) History of ulcer disease: Comment: ulcer- EGD-years ago Code(s): Z87.898 - Personal history of other specified conditions Category: Medical (2) NSAID long-term use: Comment: ortho Code(s): Z79.1 - termination clerk (current) use of non-steroidal anti-inflammatories (NSAID) Category: Medical Plan: Discuss with ortho, alternatives-meanwhile take with food Will begin PPI-empty stomach 30 minute (3) Acid reflux: Comment: Worsening symptoms, NSAIDs may play a role Code(s): K21.9 - Gastro-esophageal reflux disease without esophagitis Category: Medical Plan: pantoprazole 40 mg (4) Screening for colon cancer: Code(s): Z12.11 - Encounter for screening for malignant neoplasm of colon Category: Medical Plan: colonoscopy- MG prep Plan EGD/ colon MG prep Medications: New polyethylene glycol 3350 (Miralax) Take as directed by mouth the day before your procedure. 238 grams PO ONCE PRN 238 grams 0RF laxative effect 1 day pantoprazole 40 mg PO DAILY 30 tabs 11RF 30 days bisacodyl (Dulcolax (bisacodyl)) Day before procedure @ 12 noon Take 4 tablets by mouth followed by large glass of water 20 mg (4 x 5 mg) PO ONCE PRN 4 tabs 0RF colonoscopy prep 1 day Z12.11 - Encounter for screening for malignant neoplasm of colon Patient Instructions: Very pleasant Gent, referred back for screening colonoscopy presents with worsening acid reflux, MLC NSAID-he will discuss alternative with ortho EGD/ colon MG prep pantoprazole 40mg-empty stomach 30 minute Will discuss alternative to NSAIDs with ortho Coding Level of Care Code Est Pt Level 3 (81214) Diagnoses History of ulcer disease Z87.898 NSAID long-term use Z79.1 Acid reflux K21.9 Screening for colon cancer Z12.11 Time Spent (min) 35
[2023-12-31 11:51] VITALS: BP 105/62; PULSE 91; BMI 29.4
== END 2023-12-31 12:54 | disposition home or self-care (01) ==
PROVIDERS: PCP Nurse Practitioner Family; Visit Provider Physician Assistant
DX: Z87.898 Personal history of other specified conditions (principal); Z79.1 Long term (current) use of non-steroidal anti-inflammatories (NSAID); K21.9 Gastro-esophageal reflux disease without esophagitis; Z12.11 Encounter for screening for malignant neoplasm of colon
CPT/HCPCS: 99213

== ENCOUNTER → 2023-12-31 11:44 | Outpatient (BNVA) | payer MEDICARE, SELFPAY | PROVIDERS: PCP Nurse Practitioner Family; Visit Provider Physician Assistant | DX: Z12.11 Encounter for screening for malignant neoplasm of colon (principal); K21.9 Gastro-esophageal reflux disease without esophagitis; Z79.1 Long term (current) use of non-steroidal anti-inflammatories (NSAID); Z87.898 Personal history of other specified conditions | CPT/HCPCS: 99212 ==

== ENCOUNTER 2024-02-28 08:39 | Outpatient (REF) | payer MEDICARE, SELFPAY ==
[2024-02-28 12:00] LABS: Alanine Aminotransferase 29 U/L (0-40); Albumin Level 4.8 g/dL (3.5-5.0); Alkaline Phosphatase 55 U/L (39-117); Anion Gap 11 (12-20); Aspartate Amino Transferase 23 U/L (5-37); Bilirubin Total 1.2 mg/dL (0.0-1.0); Blood Urea Nitrogen 16 mg/dL (9-16); Calcium 9.9 mg/dL (8.4-10.2); Carbon Dioxide 28 mmol/L (22-29); Chloride 104 mmol/L (96-108); Cholesterol 151 mg/dL (<200); Estimated Glomerular Filt Rate > 60; Glucose Fasting 120 mg/dL (60-99); HDL Cholesterol 58 mg/dL (>40); LDL Cholesterol Calculated 81 mg/dL (<100); Potassium 4.1 mmol/L (3.3-5.1); Sodium 139 mmol/L (135-145); Total Protein 7.9 g/dL (6.5-8.0); Triglycerides 63 mg/dL (<150)
== END 2024-02-28 08:40 | disposition home or self-care (01) ==
LOC: HO.HMGCLDS 08:39
PROVIDERS: PCP Nurse Practitioner Family; Visit Provider Nurse Practitioner Family
DX: E78.5 Hyperlipidemia, unspecified (principal)
CPT/HCPCS: 36415; 80053; 80061

== ENCOUNTER 2024-05-11 15:10 | Outpatient (REF) | payer MEDICARE, SELFPAY ==
[2024-05-11 17:39] LABS: PSA,Total (Free>4and<10) 4.18 ng/mL (0.00-4.00)
[2024-05-13 10:32] LABS: Free Prostate Spec Ag 1.2 ng/mL; Percent Free Prostate Spec Ag 27 % (calc) (>25); Prostate Specific Ag Total 4.4 ng/mL (< OR = 4.0)
== END 2024-05-11 15:11 | disposition home or self-care (01) ==
LOC: HO.HMGCLDS 15:10
PROVIDERS: PCP Nurse Practitioner Family; Visit Provider Urology
DX: R97.20 Elevated prostate specific antigen [PSA] (principal); Z12.5 Encounter for screening for malignant neoplasm of prostate
CPT/HCPCS: 36415; 84153; 84154

== ENCOUNTER 2024-05-20 08:29 | Outpatient (AMB) | payer MEDICARE, SELFPAY ==
--- NOTE | 2024-05-20 08:42 | MHC.OFFVIS ---
Intake Visit Reasons: 6M Follow Up-PSA/PVR(set) Intake Note: Patient is Present for PVR/PSA Urology Med: Finasteride, Tamsulosin, Tadalafil, Sildenafil Antibiotic Allergy: None Blood Thinner:None Patient states no current issues with Urination Will need a refill on Finasteride. Patient states that he had requested a refill but medication was not refilled. Last PVR: 0ml Todays PVR: 26 Recycling Technician Required: No Accompanied by: Self / Same As Patient Allergies No Known Allergies [No Known Allergies*] Allergy (Verified 05/20/24 08:48) HPI Comments Details: Martin NO is a very pleasant male. They are a patient of Dr Wilson. They are seen in the office today for the following urologic conditions. - BPH with difficulty voiding - erectile dysfunction Continues with daily tadalafil PSA remains stable with finasteride Happy with voiding Does wake twice at night when drinks PVR Will try coming off tamsulosin Finasteride 3 times a week - PSA has slowly decline PSA 11/27 5.3, 04/29 7.8 (not on finasteride), 11/28 5.6 F27%, 04/30 3.9, 06/01 4.4 Yearly review Erectile dysfunction Progressive Unable to maintain full erection No history of diabetes, or blood pressure medications Prior medications sildenafil 100 mg Good defect with daily tadalafil Lower Urinary Tract Symptoms: Current visit is for further evaluation of, lower urinary tract symptoms, predominate obstructive symptoms. Current treatment includes medication, alpha max Prostate Symptom Score 02/24 , Moderate (9-19), Bother 4 Symptoms include 02/24 , incomplete emptying, frequency, weak stream, urgency, straining, nocturia (>2), and are progressing 03/26 , and are improving - episode of retention 2018 Results from testing include renal/bladder us Yes date 01/19/2019 PVR 150 prostate size 150 Prior Prostate Score moderate. PSA 01/24 7.7, 07/27 5.5, Prostate volume 50+gm. Six month follow-up PSA now and 6 months [facility] Medical History Incomplete emptying of bladder Nocturia Benign prostatic hyperplasia with lower urinary tract symptoms Poor urinary stream Rotator cuff disorder Enthesopathy of knee, unspecified No known health problems Surgical History History of esophagogastroduodenoscopy (EGD) Hx of colonoscopy History of prostate biopsy History of appendectomy Family History Father Cancer of prostate Mother No problems noted. Son No problems noted. Brother No problems noted. Brother No problems noted. Brother No problems noted. Brother No problems noted. Sister No problems noted. Sister No problems noted. Sister No problems noted. Social History Housing: House Patient Tobacco Use Status: Former Tobacco user Years Smoked: 5 years ago e-Cigarette/Vaping Use: Never Used Second Hand Smoke Exposure: No service: No Current occupational status: retired Current occupational exposures/hazards: No Cognitive needs: No Hearing needs: No Vision needs: No Review of Systems Const Denies chills and Denies fever(s) Card Reports no additional complaints and Denies syncope Resp Denies cough GI Denies abdominal pain and Denies heartburn Reports as per HPI and Denies change in libido Neuro Denies syncope Psych Denies change in libido Endo Denies change in libido Physical Exam Const General: cooperative, healthy appearing, comfortable and no acute distress Orientation/consciousness: patient oriented x3 HEENT Face and sinus: Yes normal facial exam Mouth: moist mucous membranes Neck Neck: Yes normal visual inspection, Yes full ROM and Yes trachea midline Chest Chest palpation & inspection: normal inspection of the chest Resp Effort & Inspection: normal respiratory effort, able to speak in complete sentences and no respiratory distress GI Inspection: Yes normal to inspection Back/Spine/Pelvis Cervical Spine: normal cervical lordosis Thoracic/Lumbar Spine: thoracic and lumbar spine normal to inspection Skin General skin exam: no rashes or lesions noted Neuro General: patient oriented x3, gait normal, tone normal and moves all extremities Extrem General: Yes normal to inspection and Yes capillary refill normal Office Procedures Post Void Residual Post Residual Void Post Void Residual (PVR): 26 [id number] Void Residual by ultrasound Assessment & Plan Assessment & Plan (1) Benign prostatic hyperplasia with lower urinary tract symptoms: Code(s): N40.1 - Benign prostatic hyperplasia with lower urinary tract symptoms Category: Medical (2) Elevated PSA: Code(s): R97.20 - Elevated prostate specific antigen [PSA] Category: Medical (3) Erectile dysfunction: Code(s): N52.9 - Male erectile dysfunction, unspecified Category: Medical Plan 12 month follow-up Orders: Orders AMB Post Void Residual by ultrasound Today N40.1 - Benign prostatic hyperplasia with lower urinary tract symptoms PSA,Total (Free>4and<10) 364 Days R97.20 - Elevated prostate specific antigen [PSA] Medications: Discontinued sildenafil administer 60 minutes before intended activity Discontinued Reason: Patient Completed Course 100 mg PO ONCE 30 days PRN 30 tabs 1RF sexual activity N52.9 - Male erectile dysfunction, unspecified Patient Instructions: Imaging studies, laboratory and physical exam results were discussed and reviewed in detail. No major barriers to patient understanding were identified. An opportunity to ask questions regarding the treatment plan was provided. All questions were answered. The patient expressed understanding and agreement with the above treatment plan. The patient is aware they should contact our office by phone for worsening of their current condition or the appearance of new urologic symptoms. Compliance is encouraged with any medications and followup testing that is ordered. It is a privilege to participate in the urologic care of your patient. If you have any questions or concerns regarding treatment for the above conditions, or other urologic issues, please do not hesitate to contact me. The office telephone contact is [phone]. This note is constructed using voice recognition software. While every effort has been made to ensure accuracy fork repairer errors may have been included. Yours sincerely, Dr Janak Perez MD, [facility] - Urology Providers of Expert, Compassionate Care for the Genitourinary System Coding Level of Care Code Est Pt Level 3 (44634) Diagnoses Benign prostatic hyperplasia with lower urinary tract symptoms N40.1 Elevated PSA R97.20 Erectile dysfunction N52.9 CPT Codes Post Residual Void - PVR CPT Code: 69747-[id number] Void Residual by ultrasound ([id number])
== END 2024-05-20 09:16 | disposition home or self-care (01) ==
PROVIDERS: PCP Nurse Practitioner Family; Visit Provider Urology
DX: N40.1 Benign prostatic hyperplasia with lower urinary tract symptoms (principal); R97.20 Elevated prostate specific antigen [PSA]; N52.9 Male erectile dysfunction, unspecified
CPT/HCPCS: 99213

== ENCOUNTER → 2024-05-20 08:29 | Outpatient (BNVA) | payer MEDICARE, SELFPAY | PROVIDERS: PCP Nurse Practitioner Family; Visit Provider Urology | DX: N40.1 Benign prostatic hyperplasia with lower urinary tract symptoms (principal); N52.9 Male erectile dysfunction, unspecified; R97.20 Elevated prostate specific antigen [PSA] | CPT/HCPCS: 51798; 99212 ==

== ENCOUNTER 2024-10-11 07:36 | Day surgery (SDC) | payer MEDICARE, SELFPAY ==
[2024-10-07 12:59] VITALS: BMI 29.4
[2024-10-11 08:30] VITALS: BP 130/76; PULSE 75; RESP 14; TEMP 36.7; O2SAT 95; BMI 29.0
--- NOTE | 2024-10-11 08:39 | MHC.SHP ---
Pre-Procedural Eval Section A - 24 Hr Update-Section A only Date of Service: 10/11/24 The patient is an INPATIENT: No The patient has been examined within 24 hours of the surgical procedure. The History & Physical has been completed within 30 days and I have reviewed it.: No Section B - Complete if H&P > 30 days Chief Complaint: Colon cancer screening Relevant Family History (Specify if Yes): No Relevant Social History: Tobacco Use (Former smoker) Present Medications: see Short Stay Collaborative assessment Medical History: Significant History (Benign prostatic hyperplasia with lower urinary tract symptoms Poor urinary stream Rotator cuff disorder Enthesopathy of knee, unspecified) History of Previous Operations: Relevant previous surgery/procedure and date(s) (History of esophagogastroduodenoscopy (EGD) Hx of colonoscopy History of prostate biopsy History of appendectomy) Allergies: Allergies Allergy/AdvReac Type Severity Reaction Status Date / Time No Known Allergies Allergy Verified 10/11/24 08:33 [No Known Allergies*] Review of Systems Sugical H&P ROS: Negative: Constitution, Cardiovascular, Respiratory and Gastrointestinal Exam Surgical H&P Exam: Normal: Heart, Normal: Lungs and Normal: Abdomen Plan Diagnosis/Plan: Unchanged I have reviewed the history and physical and performed a pertinent physical examination on my patient. No changes have occurred unless specified. Time Spent With Patient Time: Total time managing care of this patient today ____ minutes.
[2024-10-11] MEDS: Lactated Ringers 1,000 ML 80 ML IVCONT (08:46)
--- NOTE | 2024-10-11 09:16 | P.CONAN_ITS ---
FORM[facility]LY [facility], LATER [facility] Active Problems Active Problems: All Active Problems Left knee pain (Acute) NSAID long-term use (Acute) Acid reflux (Acute) History of ulcer disease (Acute) New onset right bundle branch block (RBBB) (Acute) Left hip pain (Acute) Dyslipidemia (Acute) Skin lesions (Acute) Shoulder arthralgia (Acute) Skin lesion (Acute) Encounter for annual wellness visit (AWV) in Medicare patient (Acute) Screening for colon cancer (Acute) Erectile dysfunction (Acute) Elevated fasting blood sugar (Acute) Elevated PSA (Acute) Physical exam (Acute) Poor urinary stream (Acute) Benign prostatic hyperplasia with lower urinary tract symptoms (Acute) Past Medical History Medical History Dyslipidemia GERD (gastroesophageal reflux disease) Incomplete emptying of bladder Nocturia Benign prostatic hyperplasia with lower urinary tract symptoms Poor urinary stream Rotator cuff disorder Enthesopathy of knee, unspecified Functional capacity: independent ambulation Family History Family History Father Cancer of prostate Mother No problems noted. Son No problems noted. Brother No problems noted. Brother No problems noted. Brother No problems noted. Brother No problems noted. Sister No problems noted. Sister No problems noted. Sister No problems noted. Family history of problems with anesthesia: No Surgical History Surgical History History of esophagogastroduodenoscopy (EGD) Hx of colonoscopy History of prostate biopsy History of appendectomy History of Problems with Anesthesia: No Social History Social History Housing: House Are you a primary client care consultant to a significant other at home: No Do you presently have visiting nurse or other home services: No Patient Tobacco Use Status: Former Tobacco user Years Smoked: 5 years ago e-Cigarette/Vaping Use: Never Used Second Hand Smoke Exposure: No Use of substances other than those prescribed or required for medical reasons: No Have you been hit, kicked, punched, or otherwise hurt by someone within the past year? If so, by whom?: No Are you DNR?: No Advance Directives: No Advance Directives Information Provided: Yes Recently lost weight without trying: No Nutrition Risks: No Nutritional Risk Poor oral hygiene: No service: No Current occupational status: retired Current occupational exposures/hazards: No Cognitive needs: No Hearing needs: No Vision needs: No Meds Allergies Allergy/AdvReac Type Severity Reaction Status Date / Time No Known Allergies Allergy Verified 10/11/24 08:33 [No Known Allergies*] Active Medications: Current Medications Lactated Ringer's (Lr) 1,000 mls @ 80 mls/hr IVCONT .[id number] STEPHAN Last Admin: 10/11/24 08:46 Dose: 80 mls/hr Exam Height,Weight and Vital Signs: Height 5 ft 6 in Weight 81.647 kg Last Vital Signs Temp 98.1 F 10/11/24 08:30 Pulse 75 10/11/24 08:30 Resp 14 10/11/24 08:30 BP 130/76 10/11/24 08:30 Pulse Ox 95 10/11/24 08:30 O2 Del Method Room Air 10/11/24 08:30 Airway Mallampati Class: II TM Dist: >3cm Neck ROM: Full Heart: RRR Lungs: CTA Assessment and Plan Assessment Anesthesia Assessment: Anesthesia Plan Discussed and Chart Reviewed Final Anesthetic Review Family History of Problems with Anesthesia: No History of Problems with Anesthesia: No NPO: Yes ASA Class: II Final Preanesthetic Review: Meds/Allgs Chart Reviewed, Consent Obtained/Reviewed and Anes Risks/Benef Reviewed Patient Risk: Low Procedure Risk: Low Anesthetic Plan Anesthetic Plan: MAC: Disposition: Standard PACU
--- NOTE | 2024-10-11 10:10 | P.OPN-COLO_ITS ---
Colonoscopy Operative Note Operative Note Date of Service: 10/11/24 Narrative: COLONOSCOPY TILL CECUM WITH SNARE POLYPECTOMY Pre-op diagnosis: Colon cancer screening. Post-op diagnosis:? Colon polyp, Diverticulosis, hemorrhoids Endoscopist:? Blanka Serrano MD Anesthesia:?MAC Consent: Indications for the procedure and potential complications of bleeding, perforation, reaction to medications and missed diagnosis were discussed with the patient and informed consent was obtained. Instrument: Olympus PCF H 190 L variable stiffness pediatric colonoscope Monitoring: Vital signs and clinical assessment, intermittent blood pressure monitoring, continuous EKG monitoring, Pulse oximetry and Carbon Dioxide monitoring were done throughout the procedure. Please see anesthesia flowsheet. Colon withdrawl time was 15 minutes. Procedure: The patient was placed in the left lateral decubitis position and pre-procedure medications were administered. After a digital rectal examination of the ano-rectum, the video colonoscope was inserted into the rectum and advanced through the colon to the cecum. The colonoscope was slowly withdrawn in a retrograde panoramic fashion and the colon mucosa was carefully examined including a retroflexed view of the rectum. Findings and interventions are described below. Procedure Difficulty: without difficulty Findings: Terminal Ileum: Not evaluated Cecum: Normal Ascending Colon: Moderate diverticulosis throughout the entire colon Transverse Colon: A 9-10 mm sessile polyp at 70 cms - removed with hot snare. Polypectomy site was closed with 1 hemoclip. Moderate diverticulosis throughout the entire colon Descending Colon: Moderate diverticulosis throughout the entire colon Sigmoid Colon: Moderate diverticulosis Rectum: Normal Ano-rectum: Moderate internal hemorrhoids Colon preparation: Good after some irrigation. [place] Bowel Preparation Scale Right colon; 2 Transverse colon: 2 Left colon; 2 (0 = Unprepared colon segment with mucosa not seen due to solid stool that cannot be cleared. 1 = Portion of mucosa of the colon segment seen, but other areas of the colon segment not well seen due to staining, residual stool and/or opaque liquid. 2 = Minor amount of residual staining, small fragments of stool and/or opaque liquid, but mucosa of colon segment seen well. 3 = Entire mucosa of colon segment seen well with no residual staining, small fragments of stool or opaque liquid) Impression and Post Procedure Diagnosis: Colonoscopy Findings: One medium sized polyp was removed Moderate diverticulosis seen in the entire colon Moderate hemorrhoids on retroflexed exam. Plan: I will send a letter with biopsy results. Repeat Colonoscopy in 3-5 years if polyps are adenomatous and 10 year if polyps are hyperplastic. Relevant handouts were given and the discharge area.
[2024-10-11 10:12] VITALS: BP 120/71; PULSE 69; RESP 16; TEMP 36.2; O2SAT 95
[2024-10-11 10:32] VITALS: BP 118/74; PULSE 70; RESP 18; TEMP 36.2; O2SAT 99
--- NOTE | 2024-10-11 10:43 | HO.POSTANES ---
Post Anesthesia Evaluation Post Anesthesia Evaluation Date of Service: 10/11/24 Vital Signs: Vital Signs Temp Pulse Resp BP Pulse Ox O2 Del Method 10/11/24 10:32 97.2 F 70 18 118/74 99 Room Air 10/11/24 10:12 97.2 F 69 16 120/71 95 Room Air 10/11/24 08:30 98.1 F 75 14 130/76 95 Room Air Anesthesia: Monitored Mental Status: Awake Pain Control: Satisfactory Nausea/Vomiting: None Hydration: Adequate Anesthesia-Related Issues: No Anes. Related Issues
== END 2024-10-11 11:05 | disposition home or self-care (01) ==
PROVIDERS: PCP Nurse Practitioner Family; Visit Provider Internal Medicine Gastroenterology
PROC: 0DJD8ZZ Inspection of Lower Intestinal Tract, Via Natural or Artificial Opening Endoscopic (ICD-10-PCS; CPT 45378; principal; 2024-10-11 09:30)
DX: Z12.11 Encounter for screening for malignant neoplasm of colon (principal); K63.5 Polyp of colon; K57.30 Diverticulosis of large intestine without perforation or abscess without bleeding; K64.8 Other hemorrhoids; K21.9 Gastro-esophageal reflux disease without esophagitis; N40.1 Benign prostatic hyperplasia with lower urinary tract symptoms; R39.12 Poor urinary stream; R35.1 Nocturia; R33.8 Other retention of urine; Z98.890 Other specified postprocedural states; Z87.891 Personal history of nicotine dependence
CPT/HCPCS: 45385; 88305; J2003; J2704

== ENCOUNTER 2025-01-05 16:02 | Outpatient (AMB) | payer MEDICARE, SELFPAY ==
[2025-01-05 16:11] VITALS: BP 130/72; PULSE 80; O2SAT 96; BMI 29.7
--- NOTE | 2025-01-05 16:11 | MHC.PC.OV ---
Vital Signs 01/05/25 16:11 Height 5 ft 6 in Weight 184 lb BMI 29.7 BP 130/72 Blood Pressure Location Lt brachial Position Sitting Pulse 80 Pulse Source Pulse Oximeter Pulse Oximetry (%) 96 Oxygen Delivery Method Room Air Intake Visit Reasons: Annual Physical/Inactive insurance, see OA Environmental Protection Geologist Required: No Accompanied by: Self / Same As Patient Allergies No Known Allergies [No Known Allergies*] Allergy (Verified 01/05/25 16:34) Medication List - Last Reconciled 01/05/25 by CAROL Melendez- atorvastatin 10 mg PO BEDTIME finasteride 5 mg orally Friday, Friday, and Friday pantoprazole 40 mg PO DAILY 30 days tadalafil 5 mg PO DAILY 90 days tamsulosin 0.8 mg (2 x 0.4 mg) PO DAILY Tobacco use date assessed: 01/05/25 Fall risk assessment: No Falls in past year Last assessed Fall Risk: 01/05/25 Dental Screening Dental Screen Date: 01/05/25 Did you have a dental visit in the last 12 months?: Yes Did you have a dental problem in the last 6 months where you did not have access to dental care?: No Was dental information given to patient?: Patient has dentist HPI Annual Physical/Inactive insurance, see OA HPI Details History of Present Illness The patient is a 69 year old male presenting with a physical examination and concerns regarding his skin. He exhibits multiple skin tags and moles primarily on his upper back and torso. Of particular concern is a recently tender mole on his right lower back. The patient denies experiencing any symptoms related to chest pain, respiratory distress, gastrointestinal issues, or changes in bowel habits. He has an established routine of urological follow-up for PSA and prostate checks. His last colonoscopy, which took place in October this year, is current. The tender mole on his back is noteworthy for evaluation and possible intervention. Health Maintenance - Regular urologist visits for PSA and prostate checks - Colonoscopy performed in October, current and up to date Social History Review of Systems - Respiratory: Denies shortness of breath - Cardiovascular: Denies chest pain - Gastrointestinal: Denies abdominal pain, blood in stool, constipation, diarrhea -denies any fevers chills, si or hi Physical Exam General: Cooperative, healthy appearing, comfortable, no acute distress and well developed Orientation: Patient oriented x3 Limitations: No limitations Head: Normal to inspection Ears: Hearing grossly normal bilaterally Nose: Normal external nose present Face and sinus: Normal facial exam Eyes: Appearance normal, both eyes and all related structures Neck: Normal visual inspection and Yes full ROM Respiratory: Normal respiratory effort and able to speak in complete sentences. Clear to auscultation bilaterally Cardiovascular: Regular rate and rhythm. Normal S1 and S2 GI: Normal to inspection. Soft to palpation and nontender Skin: Several skin tags and moles throughout, especially on the upper back and upper torso. One large mole on the right lower back is tender to touch. Neuro: Patient oriented x3 Extremities: Normal to inspection Results Plan The patient will be referred to a lip reading teacher for detailed evaluation and possible removal of the tender mole on the right lower back. A full-body skin assessment will be conducted. Due to regular urological follow-ups, additional PSA testing is not required at this time. Discussion Notes During the visit, I discussed the patient's concerns regarding his skin, specifically the tender mole. I advised a referral to a lip reading teacher for further evaluation and potential removal of the mole. The patient understands the plan and benefits of a dermatological consultation. Continued management of his prostate health was confirmed to be under control with his urologist, negating the need for a PSA test during this visit. Patient Instructions - Follow up with the lip reading teacher as referred for mole evaluation - Maintain scheduled visits with urologist for PSA and prostate checks - Report any new or worsening symptoms regarding skin changes [facility] Medical History Dyslipidemia GERD (gastroesophageal reflux disease) Incomplete emptying of bladder Nocturia Benign prostatic hyperplasia with lower urinary tract symptoms Poor urinary stream Rotator cuff disorder Enthesopathy of knee, unspecified Surgical History History of esophagogastroduodenoscopy (EGD) Hx of colonoscopy History of prostate biopsy History of appendectomy Family History Father Cancer of prostate Mother No problems noted. Son No problems noted. Brother No problems noted. Brother No problems noted. Brother No problems noted. Brother No problems noted. Sister No problems noted. Sister No problems noted. Sister No problems noted. Social History Housing: House Are you a primary director of career resources to a significant other at home: No Do you presently have visiting nurse or other home services: No Patient Tobacco Use Status: Former Tobacco user Years Smoked: 5 years ago e-Cigarette/Vaping Use: Never Used Second Hand Smoke Exposure: No service: No Current occupational status: retired Current occupational exposures/hazards: No Cognitive needs: No Hearing needs: No Vision needs: No Questionnaire PHQ-9 Over the last 2 weeks, how often have you been bothered by any of the following problems? 1. Little interest or pleasure in doing things: not at all 2. Feeling down, depressed, or hopeless: not at all 3. Trouble falling or staying asleep, or sleeping too much: not at all 4. Feeling tired or having little energy: not at all 5. Poor appetite or overeating: not at all 6. Feeling bad about yourself - or that you are a failure or have let yourself or your family down: not at all 7. Trouble concentrating on things, such as reading the newspaper or watching television: not at all 8. Moving or speaking so slowly that other people could have noticed. Or the opposite - being so fidgety or restless that you have been moving around a lot more than usual: not at all 9. Thoughts that you would be better off or of hurting yourself in some way: not at all Total score: 0 Depression Screening Interpretation: Negative Depression Screening Done: Yes 31953 - PHQ-9 Billing: Yes Source: Developed by Drs. Luis Schaffer, Doreen Garcia, Mario Graham and colleagues, with an educational sabas from [employer]. Thrive Questionnaire Date Thrive assessed: 01/05/25 I am a: Patient What is your living situation today?: I have a steady place to live Within the past 12 months, did the food you bought not last and you didn't have the money to get more?: Never true Within the past 12 months, did you worry whether your food would run out before you got money to buy more?: Never true Do you have trouble paying for medicines?: No Do you have trouble getting transportation to medical appointments?: No Do you have trouble paying your heating and electricity bill?: No Do you have trouble taking care of your child, family member or friend?: No Do you have trouble with day-to-day activities such as bathing, preparing meals, shopping, managing finances, etc.?: No Are you currently unemployed and looking for a job?: Yes Are you interested in more education?: No Please select the resources that you would like help with: None Currently or been in a relationship where the following occur: No concerns reported THRIVE Score: 0 AUDIT C Alcohol Use Questionnaire (AUDIT-C) 1. How often do you have a drink containing alcohol?: 2-4 times a month 2. How many drinks containing alcohol do you have on a typical day when you are drinking?: 1 or 2 3. How often do you have six or more drinks on one occasion?: Never Total Score: 2 Score Reviewed/Action Taken: Yes RUTH-7 AMB Questionnaire RUTH-7 Date RUTH - 7 assessed: 01/05/25 Feeling nervous, anxious, or on edge: 0 = Not at all Not being able to stop or control worryin = Not at all Worrying too much about different things: 0 = Not at all Trouble relaxin = Not at all Being so restless that it is hard to sit still: 0 = Not at all Becoming easily annoyed or irritable: 0 = Not at all Feeling afraid as if something awful might happen: 0 = Not at all Total RUTH-7 score (0-4 normal; 5-9 mild; 10-14 moderate; 15-21 severe): 0 Source: Developed by Drs. Luis Schaffer, Doreen Garcia, Mario Graham and colleagues, with an educational sabas from [employer]. RUTH-7 Assessment Billing RUTH-7 Assessment Tool: RUTH-7 Assessment 36620 Physical exam (Primary Care) Vital Signs: Last Vital Signs Pulse 80 01/05/25 16:11 BP 130/72 01/05/25 16:11 Pulse Ox 96 01/05/25 16:11 Oxygen Delivery Method Room Air 01/05/25 16:11 BMI result Body Mass Index 29.7 Tobacco/Smoking Status: Tobacco use Status Tobacco use date assessed 01/05/25 01/05/25 16:12 Patient Tobacco Use Status Former Tobacco user 01/05/25 16:12 e-Cigarette/Vaping Use Never Used 01/05/25 16:12 PHQ-9: PHQ-9 Score PHQ-9: Total score 0 01/05/25 16:35 Depression Screening Interpretation: Negative Thrive Assessment: Date of Thrive Assessment Date Thrive assessed 01/05/25 01/05/25 16:16 Currently or been in a relationship where the following occur: No concerns reported Coding Level of Care Code Est Pt Prev Care >65y(63927) Diagnoses Physical exam Z00.00 Smoker F17.200 Skin lesions L98.9 Additional Codes RUTH-7 Assessment Billing - RUTH-7 Assessment Tool: RUTH-7 Assessment 73865 ([id number]) PHQ-9 - 06174 - PHQ-9 Billing: Yes ([id number]) Assessment & Plan Assessment & Plan (1) Physical exam: Code(s): Z00.00 - Encounter for general adult medical examination without abnormal findings Category: Medical (2) Smoker: Code(s): F17.200 - Nicotine dependence, unspecified, uncomplicated Category: Social Hx (3) Skin lesions: Code(s): L98.9 - Disorder of the skin and subcutaneous tissue, unspecified Category: Medical Plan . Orders: Orders Comprehensive [place]. Panel Fast Today Z00.00 - Encounter for general adult medical examination without abnormal findings TSH reflex Free T4 Today Z00.00 - Encounter for general adult medical examination without abnormal findings UA CC w/rflx Micro + Cult Today Z00.00 - Encounter for general adult medical examination without abnormal findings Complete Blood Count Auto Diff Today Z00.00 - Encounter for general adult medical examination without abnormal findings Lipid Panel Today Z00.00 - Encounter for general adult medical examination without abnormal findings Referrals Lung Cancer Screening Referral F17.200 - Nicotine dependence, unspecified, uncomplicated Dermatology Referral L98.9 - Disorder of the skin and subcutaneous tissue, unspecified
== END 2025-01-05 16:43 | disposition home or self-care (01) ==
PROVIDERS: PCP Nurse Practitioner Family; Visit Provider Nurse Practitioner Family
DX: Z00.00 Encounter for general adult medical examination without abnormal findings (principal); F17.200 Nicotine dependence, unspecified, uncomplicated; L98.9 Disorder of the skin and subcutaneous tissue, unspecified

== ENCOUNTER → 2025-01-05 16:02 | Outpatient (BNVA) | payer MEDICARE, SELFPAY | PROVIDERS: PCP Nurse Practitioner Family; Visit Provider Nurse Practitioner Family | DX: Z00.00 Encounter for general adult medical examination without abnormal findings (principal); L98.9 Disorder of the skin and subcutaneous tissue, unspecified; F17.200 Nicotine dependence, unspecified, uncomplicated; Z71.6 Tobacco abuse counseling | CPT/HCPCS: 96127; 99397 ==

== ENCOUNTER 2025-01-12 07:30 | Outpatient (REF) | payer MEDICARE, SELFPAY ==
[2025-01-12 10:10] LABS: MANUAL DIFF FLAG NO
[2025-01-12 10:13] LABS: Appearance Urine Clear; Color Urine Yellow; Glucose Urine UA Negative (Negative); Leukocyte Esterase Urine Trace (Negative); Nitrite Urine Negative (Negative); Specific Gravity - Urine 1.025 (1.005-1.025); UMIC TRIGGER UACC YES; Urine Blood Negative (Negative); Urine Ketones Negative (Negative); Urine Protein Negative (Neg-Trace)
[2025-01-12 10:15] LABS: Basophils Percent Auto 0.7 % (0-2); Eosinophils Absolute Auto 0.3 X10*3/uL (0.0-0.4); Hematocrit 44.5 % (42.0-52.0); Hemoglobin 14.8 g/dl (14.0-18.0); Imm Gran Abs Auto 0.02 X10*3/uL (0.00-0.03); Imm Gran Pct Auto 0.3 % (0.0-0.4); Lymphocytes Absolute Auto 1.8 X10*3/uL (1.2-4.9); Mean Corpuscular HGB Conc 33.3 g/dl (31.0-36.0); Mean Corpuscular Hemoglobin 29.8 pg (27.0-33.0); Mean Corpuscular Volume 89.5 fL (80.0-98.0); Mean Platelet Volume 10.1 fL (9.4-12.4); Monocytes Absolute Auto 0.6 X10*3/uL (0.1-1.2); Monocytes Percent Auto 9.7 % (2-11); Neutrophils Absolute Auto 3.3 x10*3/uL (2.0-8.3); Neutrophils Percent Auto 54.3 % (45-73); Platelet Count 224 X10*3/uL (160-400); Red Blood Count 4.97 X10*6/uL (4.60-5.80); Red Cell Distribution Width 13.8 % (11.0-16.0); White Blood Count 6.1 X10*3/uL (4.8-10.8)
[2025-01-12 10:19] LABS: Bacteria Urine None Seen (None Seen); Hyaline Casts Urine 0-2 /LPF (0-2); RBC Urine 0-2 /HPF (0-2); Squamous Epithelial Cell Urine 0-2 /HPF (0-2); WBC Urine 0-5 /HPF (0-5)
[2025-01-12 10:40] LABS: Alanine Aminotransferase 36 U/L (0-40); Albumin Level 4.4 g/dL (3.5-5.0); Alkaline Phosphatase 59 U/L (39-117); Anion Gap 11 (12-20); Aspartate Amino Transferase 25 U/L (5-37); Bilirubin Total 0.5 mg/dL (0.0-1.0); Blood Urea Nitrogen 16 mg/dL (9-16); Calcium 9.1 mg/dL (8.4-10.2); Carbon Dioxide 29 mmol/L (22-29); Chloride 104 mmol/L (96-108); Cholesterol 139 mg/dL (<200); Estimated Glomerular Filt Rate > 60; Glucose Fasting 140 mg/dL (60-99); HDL Cholesterol 48 mg/dL (>40); LDL Cholesterol Calculated 61 mg/dL (<100); Sodium 140 mmol/L (135-145); Triglycerides 151 mg/dL (<150)
== END 2025-01-12 07:31 | disposition home or self-care (01) ==
LOC: HO.HMGCLDS 07:30
PROVIDERS: PCP Nurse Practitioner Family; Visit Provider Nurse Practitioner Family
DX: Z00.00 Encounter for general adult medical examination without abnormal findings (principal); Z13.220 Encounter for screening for lipoid disorders; Z13.29 Encounter for screening for other suspected endocrine disorder
CPT/HCPCS: 36415; 80053; 80061; 81001; 84443; 85025

== ENCOUNTER 2025-01-24 14:31 | Outpatient (AMB) | payer MEDICARE, SELFPAY ==
[2025-01-24 14:48] VITALS: BP 134/76; PULSE 64; O2SAT 96; BMI 29.5
--- NOTE | 2025-01-24 14:48 | A.OFFVIS_ITS ---
Vital Signs 01/24/25 14:48 Height 5 ft 6 in Weight 182 lb 15.739 oz BMI 29.5 BP 134/76 Blood Pressure Location Rt brachial Position Sitting Pulse 64 Pulse Source Pulse Oximeter Pulse Oximetry (%) 96 Oxygen Delivery Method Room Air Intake Visit Reasons: Type 2 diabetes mellitus without complications Intake Note: NEW Patient presents today to establish treatment for Type 2 Diabetes Mellitus: Last Diabetic eye exam was on: OVER DUE Last Podiatry exam was on: Patient does not see a Waterproofer Helper Most recent HbA1c: 6.2%, 01/24/2025 Random Glucose- 93 mg/dL, Today Steward/Stewardess Second Required: No Accompanied by: Significant Other Allergies No Known Allergies [No Known Allergies*] Allergy (Verified 01/24/25 15:02) Medication List - Last Reconciled 01/24/25 by Shilpa Edouard PA-C atorvastatin 10 mg PO BEDTIME blood sugar diagnostic (OneTouch Verio test strips) Test blood sugar once a day blood-glucose meter (OneTouch Verio Flex Meter) Test blood sugar once a day finasteride 5 mg orally Friday, Friday, and Friday lancets (FreeStyle Lancets) As directed lancets (OneTouch Delica Plus Lancet) Test blood sugar once a day metformin ER 500 mg PO DAILY pantoprazole 40 mg PO DAILY 30 days tadalafil 5 mg PO DAILY 90 days tamsulosin 0.8 mg (2 x 0.4 mg) PO DAILY HPI HPI Type 2 diabetes mellitus without complications: Details: Patient is a 69-year-old male with a significant past medical history of elevated PSAs, hyperlipidemia and diabetes. He is here today for initial consultation regarding diabetes. Endo: He states that he was recently diagnosed with type 2 diabetes. He is currently on metformin 500 mg once a day. He states that he can tolerate it if he had to but he does get a lot of stomach upset and bloating. He prefers not to be on this medication in his interested in a GLP 1. He states that he has testing supplies at home and has not notice any high or low blood sugars. It seems like his blood sugars have responded to the metformin. His A1c is currently 6.2. He states it was much higher at his PCP's office. He has a family history of type 2 diabetes with his brother. He states that he is almost positive it is type 2. CV: Blood pressure today in the office is 134/76. His cholesterol is managed with atorvastatin 10 mg. [facility] Medical History Dyslipidemia GERD (gastroesophageal reflux disease) Incomplete emptying of bladder Nocturia Benign prostatic hyperplasia with lower urinary tract symptoms Poor urinary stream Rotator cuff disorder Enthesopathy of knee, unspecified Surgical History History of esophagogastroduodenoscopy (EGD) Hx of colonoscopy History of prostate biopsy History of appendectomy Family History Father Cancer of prostate Mother No problems noted. Son No problems noted. Brother No problems noted. Brother No problems noted. Brother No problems noted. Brother No problems noted. Sister No problems noted. Sister No problems noted. Sister No problems noted. Social History Housing: House Are you a primary field care advocate to a significant other at home: No Do you presently have visiting nurse or other home services: No Patient Tobacco Use Status: Former Tobacco user Years Smoked: 5 years ago e-Cigarette/Vaping Use: Never Used Second Hand Smoke Exposure: No service: No Current occupational status: retired Current occupational exposures/hazards: No Cognitive needs: No Hearing needs: No Vision needs: No Physical Exam Vital Signs: Last Vital Signs Pulse 64 01/24/25 14:48 BP 134/76 01/24/25 14:48 Pulse Ox 96 01/24/25 14:48 Oxygen Delivery Method Room Air 01/24/25 14:48 BMI result Body Mass Index 29.5 Const Orientation/consciousness: patient oriented x3 Neck Neck: Yes no lymphadenopathy Thyroid: Thyroid normal Carotids: no bruits Resp Auscultation: clear to auscultation bilaterally Cardio Rate: regular rate Rhythm: regular rhythm Heart sounds: S1 normal heart sound present and S2 normal heart sound present Peripheral pulses: dorsalis pedis present Neuro General: patient oriented x3, gait normal and no focal motor deficits Extrem Other: Monofilament sensation intact bilaterally. Vibratory sensation intact bilaterally. Skin intact. General: Yes normal to inspection Results AMB Hemoglobin A1c AMB Hemoglobin A1c 6.2 % Last Edit by ROSEMARIE Garcia on 01/24/25 15:16 Results Reviewed Results Reviewed: Laboratory Last Values Glucose (Clinic) 93 mg/dL (60-115) 01/24/25 15:07 Laboratory Tests 12/02/23 01/12/25 13:47 07:33 Sodium 140 Potassium 4.0 Chloride 104 Carbon Dioxide 29 Anion Gap 11 L BUN 16 Creatinine 0.76 Estimated GFR > 60 Fasting Glucose 140 H Hgb A1c (Clinic) 6.2 H Calcium 9.1 D ALT 36 Alkaline Phosphatase 59 Triglycerides 151 H Cholesterol 139 LDL Cholesterol, Calc 61 HDL Cholesterol 48 Assessment & Plan Assessment & Plan (1) Newly diagnosed diabetes: Code(s): E11.9 - Type 2 diabetes mellitus without complications Category: Medical Plan: 60 minutes spent today in [id number] time reviewing type 1 versus type 2 d iabetes, complications associated with diabetes including but not limited to increased risk of infections, amputations, blindness, stroke, heart attack, kidney disease, neuropathy etc.. We reviewed signs and symptoms of hyper and hypoglycemia that would require emergent medical treatment. Reviewed rule of 15. Labs ordered. Discontinue metformin Start Trulicity. Reviewed risks and benefits and adverse effects of this medication including nausea, vomiting, diarrhea, constipation etc.. Short term follow up in 3-4 weeks. Sooner if needed. Orders: Orders AMB Hemoglobin A1c Today E11.9 - Type 2 diabetes mellitus without complications C Peptide Today E11.9 - Type 2 diabetes mellitus without complications Comprehensive [place]. Panel Fast Today E11.9 - Type 2 diabetes mellitus without complications Glutamic acid decarboxylase Ab Today E11.9 - Type 2 diabetes mellitus without complications Islet Cell Antibody Scrn/Titer Today E11.9 - Type 2 diabetes mellitus without c omplications Medications: New dulaglutide (Trulicity) 0.75 mg (0.5 mL) subcut QWEEK 2 mL 3RF Discontinued metformin ER Discontinued Reason: Doctor's Order 500 mg PO DAILY 30 tabs 3RF Coding Level of Care Code New Pt Level 5 (32688) Diagnoses Newly diagnosed diabetes E11.9
[2025-01-24 15:11] LABS: Glucose, Whole Blood 93 mg/dL (60-115)
== END 2025-01-24 15:48 | disposition home or self-care (01) ==
PROVIDERS: PCP Nurse Practitioner Family; Visit Provider Physician Assistant
DX: E11.9 Type 2 diabetes mellitus without complications (principal)

== ENCOUNTER → 2025-01-24 14:31 | Outpatient (BNVA) | payer MEDICARE, SELFPAY | PROVIDERS: PCP Nurse Practitioner Family; Visit Provider Physician Assistant | DX: E11.9 Type 2 diabetes mellitus without complications (principal) | CPT/HCPCS: 82947; 83036; 99202 ==

== ENCOUNTER → 2025-01-27 15:24 | Outpatient (BNVA) | payer MEDICARE, SELFPAY | PROVIDERS: PCP Nurse Practitioner Family ==

== ENCOUNTER → 2025-02-03 15:34 | Outpatient (BNVA) | payer MEDICARE, SELFPAY | PROVIDERS: PCP Nurse Practitioner Family ==

== ENCOUNTER 2025-02-21 07:52 | Outpatient (AMB) | payer MEDICARE, SELFPAY ==
[2025-02-21 08:08] VITALS: BP 108/66; PULSE 68; O2SAT 95; BMI 29.3
--- NOTE | 2025-02-21 08:08 | MHC.OFFVIS ---
Vital Signs 02/21/25 08:08 Height 5 ft 6 in Weight 181 lb 10.574 oz BMI 29.3 BP 108/66 Blood Pressure Location Lt brachial Position Sitting Pulse 68 Pulse Source Pulse Oximeter Pulse Oximetry (%) 95 Oxygen Delivery Method Room Air Intake Visit Reasons: DM Intake Note: Patient present today for Type 2 Diabetes Mellitus Last Diabetic eye exam: About 2 years ago Last Podiatry Visit: Doesn't have one Random Glucose: 117 mg/dl HgA1C: 6.2% 01/24/25 Insurance Agency Owner Required: No Accompanied by: Self / Same As Patient Allergies No Known Allergies [No Known Allergies*] Allergy (Verified 02/21/25 08:12) HPI HPI DM: Details: Patient is a 69-year-old male with a significant past medical history of elevated PSAs, hyperlipidemia and diabetes. He is here today for initial consultation regarding diabetes. Endo: He states that he was recently diagnosed with type 2 diabetes this year 2024. He is currently on metformin 500 mg once a day. He wanted to try a glp1 but too expensive. He is doing ok with the metformin dosing. He has lost 10 lbs since being dx with dm. He ultimately would like to not need medication. He states that he has testing supplies at home and has not notice any high or low blood sugars. His A1c was 6.2. He has a family history of type 2 diabetes with his brother. He has not yet completed labs. CV: Blood pressure today in the office is 108/66. His cholesterol is managed with atorvastatin 10 mg. Last LDL 61. [facility] Medical History Dyslipidemia GERD (gastroesophageal reflux disease) Incomplete emptying of bladder Nocturia Benign prostatic hyperplasia with lower urinary tract symptoms Poor urinary stream Rotator cuff disorder Enthesopathy of knee, unspecified Surgical History History of esophagogastroduodenoscopy (EGD) Hx of colonoscopy History of prostate biopsy History of appendectomy Family History Father Cancer of prostate Mother No problems noted. Son No problems noted. Brother No problems noted. Brother No problems noted. Brother No problems noted. Brother No problems noted. Sister No problems noted. Sister No problems noted. Sister No problems noted. Social History Housing: House Are you a primary rn acute care to a significant other at home: No Do you presently have visiting nurse or other home services: No Patient Tobacco Use Status: Former Tobacco user Years Smoked: 5 years ago e-Cigarette/Vaping Use: Never Used Second Hand Smoke Exposure: No service: No Current occupational status: retired Current occupational exposures/hazards: No Cognitive needs: No Hearing needs: No Vision needs: No Physical Exam Const Orientation/consciousness: patient oriented x3 Neck Neck: Yes no lymphadenopathy Thyroid: Thyroid normal Carotids: no bruits Resp Auscultation: clear to auscultation bilaterally Cardio Rate: regular rate Rhythm: regular rhythm Heart sounds: S1 normal heart sound present and S2 normal heart sound present Peripheral pulses: dorsalis pedis present Neuro General: patient oriented x3, gait normal and no focal motor deficits Extrem Other: Monofilament sensation intact bilaterally. Vibratory sensation intact bilaterally. Skin intact. General: Yes normal to inspection Results Reviewed Results Reviewed: Laboratory Tests 01/12/25 01/24/25 07:33 15:11 Sodium 140 Potassium 4.0 Chloride 104 Carbon Dioxide 29 Anion Gap 11 L BUN 16 Creatinine 0.76 Estimated GFR > 60 Fasting Glucose 140 H Hgb A1c (Clinic) 6.2 H Triglycerides 151 H Cholesterol 139 LDL Cholesterol, Calc 61 HDL Cholesterol 48 Assessment & Plan Assessment & Plan (1) Newly diagnosed diabetes: Code(s): E11.9 - Type 2 diabetes mellitus without complications Category: Medical Plan: Continue current regimen. We will follow up in 3 months. Labs prior to appointment. Congratulated him on the lifestyle modifications. He will contact me sooner if he develops any change in blood sugars. (2) Dyslipidemia: Code(s): E78.5 - Hyperlipidemia, unspecified Category: Medical Plan: WNL. Continue current regimen. Coding Level of Care Code Est Pt Level 4 (30002) Complex EM visit Add On G2211 Diagnoses Newly diagnosed diabetes E11.9 Dyslipidemia E78.5
[2025-02-21 08:19] LABS: Glucose, Whole Blood 117 mg/dL (60-115)
== END 2025-02-21 08:30 | disposition home or self-care (01) ==
LOC: HO.ENCR 07:52
PROVIDERS: PCP Nurse Practitioner Family; Visit Provider Physician Assistant
DX: E11.9 Type 2 diabetes mellitus without complications (principal); E78.5 Hyperlipidemia, unspecified

== ENCOUNTER → 2025-02-21 07:52 | Outpatient (BNVA) | payer MEDICARE, SELFPAY | PROVIDERS: PCP Nurse Practitioner Family; Visit Provider Physician Assistant | DX: E11.9 Type 2 diabetes mellitus without complications (principal); E78.5 Hyperlipidemia, unspecified | CPT/HCPCS: 82947; 99212 ==

== ENCOUNTER 2025-05-03 12:50 | Outpatient (REF) | payer MEDICARE, SELFPAY ==
[2025-05-03 16:54] LABS: PSA,Total (Free>4and<10) 5.29 ng/mL (0.00-4.00)
[2025-05-04 11:53] LABS: Free Prostate Spec Ag 1.4 ng/mL; Percent Free Prostate Spec Ag 28 % (calc) (>25)
== END 2025-05-03 12:51 | disposition home or self-care (01) ==
LOC: HO.HMGCLDS 12:50
PROVIDERS: PCP Nurse Practitioner Family; Visit Provider Urology
DX: R97.20 Elevated prostate specific antigen [PSA] (principal); Z12.5 Encounter for screening for malignant neoplasm of prostate
CPT/HCPCS: 36415; 84153; 84154

== ENCOUNTER 2025-05-20 14:30 | Outpatient (AMB) | payer MEDICARE, SELFPAY ==
--- NOTE | 2025-05-20 14:48 | MHC.OFFVIS ---
Intake Visit Reasons: 1y/PSA Intake Note: patient presents today for: 1yr/psa urology medications: finasteride, tadalafil, tamsulosin blood thinners: none labs done 05/03/25: free psa 1.4, % psa 28, t-psa 5.29, off-site 5.0 today's PVR: 104 mls Gardening Manager Required: No Accompanied by: Self / Same As Patient Allergies No Known Allergies (No Known Allergies*) Allergy (Verified 05/20/25 14:51) HPI Comments Details: Martin NO is a very pleasant male. They are a patient of Dr Wilson. They are seen in the office today for the following urologic conditions. - BPH with difficulty voiding - erectile dysfunction Twelve month follow-up Continues with daily tadalafil PSA remains stable with finasteride, high free component Happy with voiding Does wake twice at night when drinks PVR Finasteride 3 times a week - PSA has slowly decline PSA 11/27 5.3, 04/29 7.8 (not on finasteride), 11/28 5.6 F27%, 04/30 3.9, 06/01 4.4, 06/02 5.0 28% Yearly review Erectile dysfunction in setting of diabetes Progressive Unable to maintain full erection No history of diabetes, or blood pressure medications Prior medications sildenafil 100 mg Good defect with daily tadalafil Lower Urinary Tract Symptoms: Current visit is for further evaluation of, lower urinary tract symptoms, predominate obstructive symptoms. Current treatment includes medication, alpha max Prostate Symptom Score / , Moderate (9-19), Bother 4 Symptoms include 02/24 , incomplete emptying, frequency, weak stream, urgency, straining, nocturia (>2), and are progressing 03/26 , and are improving - episode of retention 2018 Results from testing include renal/bladder us Yes date 01/19/2019 PVR 150 prostate size 150 Prior Prostate Score moderate. PSA 01/24 7.7, 07/27 5.5, 05/02 5.0 28% Prostate volume 50+gm. Six month follow-up PSA now and 6 months [facility] Medical History (Updated 05/22/25 @ 17:46 by Janak Perez MD) Erectile dysfunction Dyslipidemia GERD (gastroesophageal reflux disease) Incomplete emptying of bladder Nocturia Benign prostatic hyperplasia with lower urinary tract symptoms Poor urinary stream Rotator cuff disorder Enthesopathy of knee, unspecified Surgical History History of esophagogastroduodenoscopy (EGD) Hx of colonoscopy History of prostate biopsy History of appendectomy Family History Father Cancer of prostate Mother No problems noted. Son No problems noted. Brother No problems noted. Brother No problems noted. Brother No problems noted. Brother No problems noted. Sister No problems noted. Sister No problems noted. Sister No problems noted. Social History Housing: House Are you a primary managed care specialist to a significant other at home: No Do you presently have visiting nurse or other home services: No Patient Tobacco Use Status: Former Tobacco user Years Smoked: 5 years ago e-Cigarette/Vaping Use: Never Used Second Hand Smoke Exposure: No service: No Current occupational status: retired Current occupational exposures/hazards: No Cognitive needs: No Hearing needs: No Vision needs: No Office Procedures Post Void Residual Post Residual Void Post Void Residual (PVR): 104 [id number] Void Residual by ultrasound Results AMB Urinalysis, Automated UA Leukoctes 70 Demond/uL Last Edit by MARTHA Kirkland on 05/20/25 14:52 UA Nitrite Negative Last Edit by MARTHA Kirkland on 05/20/25 14:52 UA Urobilinogen 0.2 mg/dL Last Edit by MARTHA Kirkland on 05/20/25 14:52 UA Protein 15 mg/dL Last Edit by MARTHA Kirkland on 05/20/25 14:52 UA pH 6.0 Last Edit by MARTHA Kirkland on 05/20/25 14:52 UA Blood 0 Ken/uL Last Edit by MARTHA Kirkland on 05/20/25 14:52 UA Specific [place] 1.015 Last Edit by MARTHA Kirkland on 05/20/25 14:52 UA Ketone Negative Last Edit by MARTHA Kirkland on 05/20/25 14:52 UA Bilirubin 0 mg/dL Last Edit by MARTHA Kirkland on 05/20/25 14:52 UA Glucose 0 mg/dL Last Edit by MARTHA Kirkland on 05/20/25 14:52 Results Reviewed Results Reviewed: Laboratory Last Values Urine pH (Auto) 6.0 05/20/25 14:52 Specific [place] (Auto) 1.015 05/20/25 14:52 Urine Protein (Auto) 15 mg/dL 05/20/25 14:52 Glucose (UA)(Auto) 0 mg/dL 05/20/25 14:52 Urine Ketones (Auto) Negative 05/20/25 14:52 Urine Blood (Auto) 0 Ken/uL 05/20/25 14:52 Urine Nitrite (Auto) Negative 05/20/25 14:52 Urine Bilirubin (Auto) 0 mg/dL 05/20/25 14:52 Urine Urobilinogen (Auto) 0.2 mg/dL 05/20/25 14:52 Leukocyte Esterase (Auto) 70 Demond/uL 05/20/25 14:52 Assessment & Plan Assessment & Plan (1) Benign prostatic hyperplasia with lower urinary tract symptoms: Code(s): N40.1 - Benign prostatic hyperplasia with lower urinary tract symptoms Category: Medical (2) Elevated PSA: Code(s): R97.20 - Elevated prostate specific antigen [PSA] Category: Medical (3) Erectile dysfunction associated with type 2 diabetes mellitus: Code(s): E11.69 - Type 2 diabetes mellitus with other specified complication; N52.1 - Erectile dysfunction due to diseases classified elsewhere Category: Medical Plan Twelve month follow-up Continue current medications Orders: Orders PSA,Total (Free>4and<10) 12 Months R97.20 - Elevated prostate specific antigen [PSA] AMB Post Void Residual by ultrasound 05/20/25 R39.12 - Poor urinary stream AMB Urinalysis Automated 05/20/25 Z13.9 - Encounter for screening, unspecified Medications: Refilled finasteride 5 mg orally Friday, Friday, and Friday 90 tabs 1RF N40.1 - Benign prostatic hyperplasia with lower urinary tract symptoms, R33.9 - Retention of urine, unspecified tadalafil 5 mg PO DAILY 90 tabs 3RF sexual activity 90 days N52.9 - Male erectile dysfunction, unspecified Patient Instructions: This note is constructed using voice recognition software. While every effort has been made to ensure accuracy field specialist errors may have been included. Imaging studies, laboratory and physical exam results were discussed and reviewed in detail. No major barriers to patient understanding were identified. An opportunity to ask questions regarding the treatment plan was provided. All questions were answered. The patient expressed understanding and agreement with the above treatment plan. The patient is aware they should contact our office by phone for worsening of their current condition or the appearance of new urologic symptoms. Compliance is encouraged with any medications and followup testing that is ordered. It is a privilege to participate in the urologic care of your patient. If you have any questions or concerns regarding treatment for the above conditions, or other urologic issues, please do not hesitate to contact me. The office telephone contact is [phone]. Sincerely, Dr Janak Perez MD, [facility] - Urology Compassionate Specialist Care for the Genitourinary System Coding Level of Care Code Est Pt Level 4 (07333) Complex EM visit Add On G2211 Diagnoses Benign prostatic hyperplasia with lower urinary tract symptoms N40.1 Elevated PSA R97.20 Erectile dysfunction associated with type 2 diabetes mellitus E11.69; N52.1 CPT Codes Post Residual Void - PVR CPT Code: 96565-[id number] Void Residual by ultrasound ([id number])
== END 2025-05-20 15:34 | disposition home or self-care (01) ==
LOC: HO.HUSH 14:31
PROVIDERS: PCP Nurse Practitioner Family; Visit Provider Urology
DX: Z13.9 Encounter for screening, unspecified (principal)
CPT/HCPCS: 99214; G2211

== ENCOUNTER → 2025-05-20 14:30 | Outpatient (BNVA) | payer MEDICARE, SELFPAY | PROVIDERS: PCP Nurse Practitioner Family; Visit Provider Urology | DX: N40.1 Benign prostatic hyperplasia with lower urinary tract symptoms (principal); R97.20 Elevated prostate specific antigen [PSA]; E11.69 Type 2 diabetes mellitus with other specified complication; N52.1 Erectile dysfunction due to diseases classified elsewhere | CPT/HCPCS: 51798; 81003; 99212 ==

== ENCOUNTER 2025-05-23 07:52 | Outpatient (AMB) | payer MEDICARE, SELFPAY ==
--- NOTE | 2025-05-23 07:57 | MHC.OFFVIS ---
Vital Signs 05/23/25 07:58 Height 5 ft 6 in Weight 175 lb 7.807 oz BMI 28.3 BP 110/64 Blood Pressure Location Lt brachial Pulse 69 Pulse Source Pulse Oximeter Pulse Oximetry (%) 98 Oxygen Delivery Method Room Air Intake Visit Reasons: Type 2 dm Intake Note: Patient present today for Type 2 Diabetes Mellitus Last Diabetic eye exam: Last exam was over 1 year ago but he will be scheduling appt for this year Last Podiatry Visit: Doesnt have one Random Glucose: 144 mg/dl HgA1C: 5.8% Lane Attendant Required: No Allergies No Known Allergies (No Known Allergies*) Allergy (Verified 05/23/25 08:03) Medication List - Last Reconciled 05/23/25 by Shilpa Edouard PA-C atorvastatin 10 mg PO BEDTIME blood sugar diagnostic (Accu-Chek Guide test strips) Test blood sugar once a day blood-glucose meter (Accu-Chek Guide Glucose Meter) As directed finasteride 5 mg orally Friday, Friday, and Friday lancets (Accu-Chek Softclix Lancets) Test blood sugar once a day pantoprazole 40 mg PO DAILY 30 days tadalafil 5 mg PO DAILY 90 days tamsulosin 0.8 mg (2 x 0.4 mg) PO DAILY HPI HPI Type 2 dm: Details: Patient is a 69-year-old male with a significant past medical history of elevated PSAs, hyperlipidemia and diabetes. He is here today for initial consultation regarding diabetes. Endo: He states that he was recently diagnosed with type 2 diabetes this year 2024. He is currently on metformin 500 mg once a day. He wanted to try a glp1 but too expensive. He is doing ok with the metformin dosing. He has lost 10 lbs since being dx with dm. He ultimately would like to not need medication. He states that he has testing supplies at home and has not notice any high or low blood sugars. He states he rarely checks his blood sugars. His A1c was 6.2 and today it is 5.8. He has a family history of type 2 diabetes with his brother. CV: Blood pressure today in the office is 110/64. His cholesterol is managed with atorvastatin 10 mg. Last LDL 61. [facility] Medical History (Updated 05/22/25 @ 17:46 by Janak Perez MD) Erectile dysfunction Dyslipidemia GERD (gastroesophageal reflux disease) Incomplete emptying of bladder Nocturia Benign prostatic hyperplasia with lower urinary tract symptoms Poor urinary stream Rotator cuff disorder Enthesopathy of knee, unspecified Surgical History History of esophagogastroduodenoscopy (EGD) Hx of colonoscopy History of prostate biopsy History of appendectomy Family History Father Cancer of prostate Mother No problems noted. Son No problems noted. Brother No problems noted. Brother No problems noted. Brother No problems noted. Brother No problems noted. Sister No problems noted. Sister No problems noted. Sister No problems noted. Social History Housing: House Are you a primary skin care specialist to a significant other at home: No Do you presently have visiting nurse or other home services: No Patient Tobacco Use Status: Former Tobacco user Years Smoked: 5 years ago e-Cigarette/Vaping Use: Never Used Second Hand Smoke Exposure: No service: No Current occupational status: retired Current occupational exposures/hazards: No Cognitive needs: No Hearing needs: No Vision needs: No Physical Exam Vital Signs: Last Vital Signs Pulse 69 05/23/25 07:58 BP 110/64 05/23/25 07:58 Pulse Ox 98 05/23/25 07:58 Oxygen Delivery Method Room Air 05/23/25 07:58 BMI result Body Mass Index 28.3 Const Orientation/consciousness: patient oriented x3 Neck Neck: Yes no lymphadenopathy Thyroid: Thyroid normal Carotids: no bruits Resp Auscultation: clear to auscultation bilaterally Cardio Rate: regular rate Rhythm: regular rhythm Heart sounds: S1 normal heart sound present and S2 normal heart sound present Peripheral pulses: dorsalis pedis present Neuro General: patient oriented x3, gait normal and no focal motor deficits Extrem Other: Monofilament sensation intact bilaterally. Vibratory sensation intact on right and diminished on left. Skin intact. General: Yes normal to inspection Results AMB Hemoglobin A1c AMB Hemoglobin A1c 5.8 % Last Edit by ROSEMARIE Nash on 05/23/25 08:14 Results Reviewed Results Reviewed: Laboratory Last Values Glucose (Clinic) 144 mg/dL (60-115) H 05/23/25 08:05 Laboratory Tests 01/12/25 01/24/25 02/21/25 07:33 15:11 08:15 Creatinine 0.76 Estimated GFR > 60 Glucose (Clinic) 117 H Hgb A1c (Clinic) 6.2 H Triglycerides 151 H Cholesterol 139 LDL Cholesterol, Calc 61 HDL Cholesterol 48 Assessment & Plan Assessment & Plan (1) Newly diagnosed diabetes: Code(s): E11.9 - Type 2 diabetes mellitus without complications Category: Medical Plan: Discontinue metformin Recheck in 3-4 months. Sooner if needed Congratulated him on the lifestyle modifications, weight loss and improvement of A1c (2) Dyslipidemia: Code(s): E78.5 - Hyperlipidemia, unspecified Category: Medical Plan: Continue current regimen Orders: Orders AMB Hemoglobin A1c Today E11.9 - Type 2 diabetes mellitus without complications, Z13.9 - Encounter for screening, unspecified Medications: Discontinued metformin ER Discontinued Reason: Doctor's Order 500 mg PO DAILY 90 tabs 3RF Coding Level of Care Code Est Pt Level 4 (04766) Complex EM visit Add On G2211 Diagnoses Newly diagnosed diabetes E11.9 Dyslipidemia E78.5
[2025-05-23 07:58] VITALS: BP 110/64; PULSE 69; O2SAT 98; BMI 28.3
[2025-05-23 08:09] LABS: Glucose, Whole Blood 144 mg/dL (60-115)
== END 2025-05-23 08:18 | disposition home or self-care (01) ==
LOC: HO.ENCR 07:53
PROVIDERS: PCP Nurse Practitioner Family; Visit Provider Physician Assistant
DX: Z13.9 Encounter for screening, unspecified (principal); E11.9 Type 2 diabetes mellitus without complications; E78.5 Hyperlipidemia, unspecified

== ENCOUNTER → 2025-05-23 07:52 | Outpatient (BNVA) | payer MEDICARE, SELFPAY | PROVIDERS: PCP Nurse Practitioner Family; Visit Provider Physician Assistant | DX: E11.9 Type 2 diabetes mellitus without complications (principal); E78.5 Hyperlipidemia, unspecified | CPT/HCPCS: 82947; 83036; 99212 ==